=== PATIENT | male | born 1960 | race Caucasian/White ===

== ENCOUNTER → 2020-09-09 13:43 | Outpatient (BNVA) | payer OTHER, SELFPAY | PROVIDERS: PCP Internal Medicine; Visit Provider Internal Medicine Endocrinology, Diabetes & Metabolism | DX: E11.65 Type 2 diabetes mellitus with hyperglycemia (principal); E11.42 Type 2 diabetes mellitus with diabetic polyneuropathy; E11.3299 Type 2 diabetes mellitus with mild nonproliferative diabetic retinopathy without macular edema, unspecified eye; E78.5 Hyperlipidemia, unspecified; E66.01 Morbid (severe) obesity due to excess calories; I10 Essential (primary) hypertension; Z79.4 Long term (current) use of insulin; Z68.42 Body mass index [BMI] 45.0-49.9, adult | CPT/HCPCS: 82947; 99212 ==

== ENCOUNTER 2020-09-14 11:26 | Outpatient (REF) | payer OTHER, SELFPAY ==
[2020-09-14 12:22] LABS: Hematocrit 41.5 % (42-52); Hemoglobin 13.5 g/dl (14.0-18.0); Mean Corpuscular HGB Conc 32.5 g/dl (31.0-36.0); Mean Corpuscular Volume 89.1 fL (80-98); Mean Platelet Volume 10.2 fL (9.4-12.4); Platelet Count 252 X10*3/uL (160-400); Red Blood Count 4.66 X10*6/uL (4.60-5.80); Red Cell Distribution Width 13.2 % (11.0-16.0); White Blood Count 10.1 X10*3/uL (4.8-10.8)
[2020-09-14 12:40] LABS: Alanine Aminotransferase 11 U/L (0-40); Albumin Level 4.3 g/dL (3.5-5.0); Alkaline Phosphatase 76 U/L (39-117); Anion Gap 13 (12-20); Aspartate Amino Transferase 13 U/L (5-37); Bilirubin Total 0.6 mg/dL (0.0-1.0); Blood Urea Nitrogen 14 mg/dL (9-16); Calcium 9.8 mg/dL (8.4-10.2); Carbon Dioxide 25 mmol/L (22-29); Chloride 106 mmol/L (96-108); Cholesterol 195 mg/dL; Estimated Glomerular Filt Rate > 60; Glucose Fasting 139 mg/dL (60-99); HDL Cholesterol 43 mg/dL; LDL Cholesterol Calculated 135 mg/dl; Potassium 4.6 mmol/L (3.3-5.1); Sodium 139 mmol/L (135-145); Total Protein 6.8 g/dL (6.5-8.0); Triglycerides 87 mg/dL
[2020-09-14 13:26] LABS: Vitamin B12 369 pg/mL (200-900)
[2020-09-16 12:12] LABS: LDL Cholesterol Direct 136 mg/dL (<100)
== END 2020-09-14 11:27 | disposition home or self-care (01) ==
LOC: HO.LAB 11:26
PROVIDERS: PCP Internal Medicine; Visit Provider Internal Medicine Endocrinology, Diabetes & Metabolism
DX: E11.65 Type 2 diabetes mellitus with hyperglycemia (principal)
CPT/HCPCS: 36415; 80053; 80061; 82607; 83721; 85027

== ENCOUNTER → 2020-10-01 13:06 | Outpatient (BNVA) | payer OTHER, SELFPAY | PROVIDERS: PCP Internal Medicine; Visit Provider Surgery Vascular Surgery | DX: I83.11 Varicose veins of right lower extremity with inflammation (principal) | CPT/HCPCS: 99212 ==

== ENCOUNTER 2020-10-20 12:31 | Outpatient (REF) | payer OTHER, SELFPAY ==
--- NOTE | ~2020-10-20 | US_ITS ---
EXAMINATION: BILATERAL LOWER EXTREMITY VENOUS ULTRASOUND (Reflux Exam) CLINICAL INDICATION: This is a 60-year-old male with venous insufficiency and varicose veins. COMPARISON: None. TECHNIQUE: Color flow triplex imaging and compression Doppler was performed to evaluate both the deep and the superficial systems bilaterally. To evaluate the superficial system, the examination was performed in the upright position. Color-flow Doppler ultrasound and compression ultrasound were utilized. In addition, maneuvers were utilized to demonstrate reflux. FINDINGS: 1. DEEP VENOUS ULTRASOUND OF THE RIGHT LOWER EXTREMITY: Common Femoral Vein: Compressible, normal respiratory variation and augmented flow. Femoral vein: Compressible, normal color flow and augmentation. Popliteal Vein: Compressible, normal augmentation. Deep Reflux: There is no evidence of reflux in the deep system in either the common femoral vein or the popliteal vein. . There is no evidence of a Giles's cyst. 2. SUPERFICIAL ULTRASOUND WITH DOPPLER OF RIGHT LOWER EXTREMITY GREAT SAPHENOUS VEIN: Saphenofemoral junction: 0.7 cm. There is no reflux at the junction. Mid thigh: 0.4 cm. The reflux time is 3260 ms. Above knee: 0.6 cm. There is no reflux this level. There is chronic appearing clot in the great saphenous vein at this level. Below knee: 0.6 cm. The reflux time is 1280 ms per Mid calf: 0.5 cm. The reflux time is 436 ms per Ankle: 0.5 cm. The reflux time is 244 ms per GSV REFLUX: There is reflux in the great saphenous vein but not at the junction. DUPLICATED GREAT SAPHENOUS VEIN: There is a 0.6 cm duplicated lateral great saphenous vein without reflux at the junction. However, it measures 0.5 cm in the mid thigh with the reflux time of 1204 ms. SMALL SAPHENOUS VEIN: Upper: 0.2 cm Lower: There are 0.2 cm SSV REFLUX: No evidence of reflux. VEIN OF GIACOMINI: None Imaged. PERFORATORS: None Imaged VARICOSITIES: There are 0.6 and 0.5 cm varicose veins in the proximal thigh, at the knee and the mid calf with greater than 1000 ms of reflux. 3. DEEP VENOUS ULTRASOUND OF THE LEFT LOWER EXTREMITY: Common Femoral Vein: Compressible, normal respiratory variation and augmented flow. Femoral vein: Compressible, normal color flow and augmentation. Popliteal Vein: Compressible, normal augmentation. Deep Reflux: There is no evidence of reflux in the deep system in either the common femoral vein or the popliteal vein. There is no evidence of a Giles's cyst. 4. SUPERFICIAL ULTRASOUND WITH DOPPLER OF LEFT LOWER EXTREMITY GREAT SAPHENOUS VEIN: Saphenofemoral junction: 1.1 cm. There is no reflux at the junction appear Mid thigh: 0.4 cm. No flow is seen at this level. There is chronic appearing clot in this portion of the great saphenous vein. Above knee: 0.3 cm. There is no reflux. Below knee: 0.5 cm. There is greater than 3 seconds of reflux at this level. Mid calf: 0.3 cm. The reflux time is 1248 ms. Ankle: 0.3 cm. There is no reflux at this level. GSV REFLUX: There is isolated reflux in the left great saphenous vein. DUPLICATED GREAT SAPHENOUS VEIN: There is a duplicated lateral great saphenous vein measuring 0.6 cm without evidence of reflux. SMALL SAPHENOUS VEIN: Upper: 0.3 cm Lower: 0.2 cm SSV REFLUX: No evidence of reflux. VEIN OF GIACOMINI: None Imaged. PERFORATORS: There is a 0.3 cm oracle bpm developer without reflux to VARICOSITIES: There are 0.5 cm and 0.3 cm varicose veins in the proximal thigh, proximal calf. There is 1760 ms of reflux in the proximal calf. There is 2224 ms of reflux in the proximal calf. There is a left-sided Giles's cyst measuring 4.2 x 1.2 x 3.8 cm. US/US venous duplex LE BI IMPRESSION: 1. There is a patent right great saphenous vein without evidence of reflux at the junction. However, there is reflux below this area. There is chronic-appearing clot in the mid thigh great saphenous vein. 2. 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 3. There is a patent right small saphenous vein without evidence of reflux. 4. There are right leg varicose veins with greater than 500 ms of reflux that measure 0.5 and 0.6 cm. 5. There is a patent left great saphenous vein without evidence of reflux at the junction. There is reflux seen at and below the knee. There is chronic-appearing clot in the mid great saphenous vein. 6. There is a patent left lateral duplicated great saphenous vein without evidence of reflux at the junction. 7. There is a patent left small saphenous vein without evidence of reflux. 8. There are left leg varicose veins with greater than 500 ms of reflux in the measure 0.3 and 0.5 cm, respectively. 8. There is a left-sided Giles's cyst as noted.
== END 2020-10-20 12:32 | disposition home or self-care (01) ==
LOC: HO.US 12:31
PROVIDERS: Visit Provider Surgery Vascular Surgery
DX: I83.11 Varicose veins of right lower extremity with inflammation (principal); I83.893 Varicose veins of bilateral lower extremities with other complications
CPT/HCPCS: 93970

== ENCOUNTER → 2020-10-29 12:50 | Outpatient (BNVA) | payer OTHER, SELFPAY | PROVIDERS: Visit Provider Surgery Vascular Surgery | DX: I83.11 Varicose veins of right lower extremity with inflammation (principal); E11.42 Type 2 diabetes mellitus with diabetic polyneuropathy; E11.65 Type 2 diabetes mellitus with hyperglycemia; E11.3299 Type 2 diabetes mellitus with mild nonproliferative diabetic retinopathy without macular edema, unspecified eye; E66.01 Morbid (severe) obesity due to excess calories; Z68.42 Body mass index [BMI] 45.0-49.9, adult; Z88.8 Allergy status to other drugs, medicaments and biological substances | CPT/HCPCS: 99212 ==

== ENCOUNTER → 2020-11-27 10:20 | Outpatient (BNVA) | payer OTHER, SELFPAY | PROVIDERS: Visit Provider Surgery Vascular Surgery | DX: I83.11 Varicose veins of right lower extremity with inflammation (principal) | CPT/HCPCS: 36475; 36476 ==

== ENCOUNTER 2020-11-30 15:24 | Outpatient (REF) | payer OTHER, SELFPAY ==
--- NOTE | ~2020-11-30 | US_ITS ---
EXAMINATION: US VENOUS ULTRASOUND WITH DOPPLER LOWER EXTREMITY, RIGHT CLINICAL INFORMATION: Status post right great saphenous vein RFA. COMPARISON: None. TECHNIQUE: Ultrasound of the deep veins is performed from the hip to the calf with compression sonography and color and pulse Doppler assessment. Spectral analysis with color-flow imaging is performed. FINDINGS: There is normal venous compression and respiratory variation and augmented flow. The visualized common femoral vein, superficial femoral vein, profunda femoral vein, popliteal vein, and the trifurcation region shows no evidence of deep venous thrombosis. There is a 3.0 x 4.6 x 0.4 cm Giles's cyst. The right great saphenous vein is occluded 3.3 cm from the saphenofemoral junction. If the patient's symptoms persist, followup ultrasound in 5 days 7 days might be of value to exclude proximal propagation from a non-visualized calf vein. US/US venous duplex LE RT IMPRESSION: No DVT demonstrated in the right lower extremity. The right great saphenous vein is occluded 3.3 cm from the saphenofemoral junction. There is a 4.6 cm right popliteal fossa Giles's cyst.
== END 2020-11-30 15:25 | disposition home or self-care (01) ==
LOC: HO.US 15:24
PROVIDERS: Visit Provider Surgery Vascular Surgery
DX: M79.604 Pain in right leg (principal)
CPT/HCPCS: 93971

== ENCOUNTER → 2020-12-10 10:33 | Outpatient (BNVA) | payer OTHER, SELFPAY | PROVIDERS: Visit Provider Surgery Vascular Surgery | DX: I83.11 Varicose veins of right lower extremity with inflammation (principal) | CPT/HCPCS: 99212 ==

== ENCOUNTER → 2021-02-11 12:58 | Outpatient (BNVA) | payer OTHER, SELFPAY | PROVIDERS: PCP Internal Medicine; Visit Provider Surgery Vascular Surgery | DX: I89.0 Lymphedema, not elsewhere classified (principal) | CPT/HCPCS: 99212 ==

== ENCOUNTER → 2022-07-28 11:09 | Outpatient (BNVA) | payer OTHER, SELFPAY | PROVIDERS: PCP Internal Medicine; Visit Provider Surgery Vascular Surgery | DX: I83.11 Varicose veins of right lower extremity with inflammation (principal); I89.0 Lymphedema, not elsewhere classified; I25.10 Atherosclerotic heart disease of native coronary artery without angina pectoris | CPT/HCPCS: 99212 ==

== ENCOUNTER → 2023-10-02 09:20 | Outpatient (BNVA) | payer OTHER, SELFPAY | PROVIDERS: PCP Internal Medicine; Visit Provider Surgery ==

== ENCOUNTER 2023-10-27 08:55 | Outpatient (AMB) | payer MEDICARE, SELFPAY ==
--- NOTE | 2023-10-27 10:00 | MHC.OFFVISWM ---
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 Allergies morphine Allergy (Intermediate, Verified 10/27/23 10:00) Hives empagliflozin [Jardiance] Allergy (Unknown, Verified 10/27/23 10:00) Unknown Medication List - Last Reconciled 10/27/23 by Graham Zepeda MD atorvastatin 40 mg PO DAILY blood sugar diagnostic (FreeStyle Lite Strips) 4 times a day carvedilol 25 mg PO BID cholecalciferol (vitamin D3) 50 mcg PO DAILY clotrimazole 1% appl topical BID dulaglutide (Trulicity) mg subcut furosemide 20 mg PO DAILY insulin aspart (niacinamide) 100 unit/mL (Fiasp U-100 Insulin) 0 - 25 units subcut TID insulin degludec (Tresiba FlexTouch U-200 insulin) 120 units (0.6 mL) subcut DAILY 30 days lisinopril 20 mg PO BID metformin 1,000 mg PO BID 90 days pen needle, diabetic (BD Yudy 2nd Gen Pen Needle) 5 times a day pregabalin 200 mg PO BID sacubitril-valsartan 49-51 mg (Entresto) 1 tab PO BID sacubitril-valsartan 97-103 mg (Entresto) 1 tab PO BID spironolactone 25 mg PO DAILY HPI 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: Details: Start time: 9.55am, End time: 10.40am ?I spent 40 minutes speaking with the patient on the phone plus an additional 5 minutes reviewing and updating records for a total of 45 minutes HPI Comments Details: Previous weight loss efforts: Janeen Gonsales MD-supervised Wakes up: 7am, sleeps: 11pm Breakfast: 10am (toast, eggs) Lunch: 1-2pm (salad, sandwich) Dinner: 6-7pm (chicken, pork with potatoes) Snacks: 4pm (fruit: grapes) Exercise: Ski machine Fluids: Coffee: 24oz/d (sweetener, almond milk), tea: 1/month (sugar free ice tea), soda: none, juice: occasionally, ETOH: none PFSH Medical History (Updated 10/27/23 @ 10:06 by Graham Zepeda MD) Morbid obesity Morbid obesity with BMI of 45.0-49.9, adult Dyslipidemia Mild nonproliferative diabetic retinopathy associated with type 2 diabetes mellitus Diabetic polyneuropathy associated with type 2 diabetes mellitus 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 Brother Prostate cancer Social History (Updated 10/02/23 @ 10:18 by Denisha Mccracken CMA) Alcohol intake: never Patient Tobacco Use Status: Former Tobacco user Tobacco use type: Cigarette Telehealth Telehealth Telehealth Platform: Telephone Location of provider rendering services: practice address Location of patient: address on file Patient Identification confirmed using: Name, : Yes Telehealth method: voice only Patient verbally consented to treatment: Yes Patient verbally consented to billing insurance company: Yes Patient informed of any privacy concerns related to visit: Yes Minutes spent on Phone/Video with Pt.: 45 Assessment & Plan Assessment & Plan (1) Morbid obesity: Code(s): E66.01 - Morbid (severe) obesity due to excess calories Category: Medical Plan: 1.? Plan for lap sleeve gastrectomy. If diaphragmatic or ventral hernias are present at time of surgery, these will be repaired laparoscopically as well. Risks and complications were discussed in detail including possible conversion to an open procedure, anastomotic leak, bleeding requiring transfusion, small bowel obstruction, , DVT and pulmonary embolism, cardiac, or pulmonary complications, as mcfp complications such as anastomotic ulcer, insufficient weight loss and vitamin deficiencies. I emphasized the importance of close follow-up, adherence to instructions and good communication. 2. Nutritional counseling. Start with 2 Pure protein shakes (buy at [employer], [employer] or [employer]) (TWO scoops EACH in 8oz low fat unsweetened almond milk each) at 8am-10am and 11am-1pm, 1 Pure protein bar (buy at [employer], [employer] or [employer]) at 2pm-4pm, HALF Pure protein bar at 5pm-6pm, dinner at 6pm (10 forks of protein and 10 forks of salad/vegetables) AND one more Pure protein bar after dinner at 8pm-10pm. So you do 2 protein shakes, 2.5 protein bars and one meal per day. Meal to include lean meat (beef, fish, pork, turkey, chicken), or [place] yogurt, or egg whites, or beans with a salad with olive oil and fruits (berries, pears, apples, kiwi). Avoid salt, breads, potatoes, rice, pasta, desserts. 3. Each shake would be drunk slowly, like coffee in a period of 2 hours. 4. Cut each bar in 4 pieces and eat each piece in 30min ?to make each bar last 2 hours. 5. I emphasized the importance of measuring accurately the food portion and measure it when serving the food in plate 6. The meal portions include 10 full-size forks of meat and 10 full-size forks of salad. You always eat the meat portion but you can replace up to 5 forks for salad/vegetables with rice, potatoes or pasta, or a fruit ?if you like. The less you do it the better weight loss will be. 7. One full-size fork is what it can be scooped on the fork without falling aside and not what can be bit with the fork. Use regular forks like those you find in a typical restaurant. 8.? Please send me weight measurements as soon as possible and then once a week. Always include your diet and exercise plan. 9. Start the ski machine for 10 minutes, twice per day 10. The best choice would be to purchase a stationary bike, elliptical or treadmill at home that can track calories. Let me know if you do so I can give you an exercise plan. 11.Goal is to lose at least 1.5-2lbs per week 12. Goal to lose 10% of your weight before surgery, which is about 38lbs. Ultimate weight goal: 338lbs before surgery 13. Please follow the diet plan exactly without any change. If you don't like something about the plan or you feel hungry you need to communicate with me so I can help you revise the plan. You should not change the plan yourself. 14. To be scheduled for EGD due to history of GERD. The possibility of biopsies was discussed. Patient needs to avoid use of NSAIDs and aspirin for 1 week prior to EGD. Risks of perforation and bleeding was discussed with the patient. This will be an outpatient procedure with IV sedation. 15. Please buy a blood pressure monitor. I emphasized the importance of monitoring the blood pressure daily in am when wakes up and two more times throughout the day. If systolic blood pressure is 110 mmHg, or less I explained to the patient that needs to notify me. Also I explained the symptoms of orthostatic hypotension (dizziness and lightheadedness) for which the patient also needs to notify me. 16. 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, Z68.42 - Body mass index [BMI] 45.0-49.9, adult, Z79.4 - intermediate project manager (current) use of insulin Hemoglobin A1c Today E11.65 - Type 2 diabetes mellitus with hyperglycemia, E66.01 - Morbid (severe) obesity due to excess calories, E78.5 - Hyperlipidemia, unspecified, I10 - Essential (primary) hypertension, 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, Z68.42 - Body mass index [BMI] 45.0-49.9, adult, Z79.4 - intermediate project manager (current) use of insulin H Pylori Breath Test Today E11.65 - Type 2 diabetes mellitus with hyperglycemia, E66.01 - Morbid (severe) obesity due to excess calories, E78.5 - Hyperlipidemia, unspecified, I10 - Essential (primary) hypertension, 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 Complete Blood Count Auto Diff Today E11.65 - Type 2 diabetes mellitus with hyperglycemia, E66.01 - Morbid (severe) obesity due to excess calories, E78.5 - Hyperlipidemia, unspecified, I10 - Essential (primary) hypertension, 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, Z68.42 - Body mass index [BMI] 45.0-49.9, adult, Z79.4 - intermediate project manager (current) use of insulin Vitamin B12 and Folate Today E11.65 - Type 2 diabetes mellitus with hyperglycemia, E66.01 - Morbid (severe) obesity due to excess calories, E78.5 - Hyperlipidemia, unspecified, I10 - Essential (primary) hypertension, 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 Zinc Today E11.65 - Type 2 diabetes mellitus with hyperglycemia, E66.01 - Morbid (severe) obesity due to excess calories, E78.5 - Hyperlipidemia, unspecified, I10 - Essential (primary) hypertension, 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, Z68.42 - Body mass index [BMI] 45.0-49.9, adult, Z79.4 - intermediate project manager (current) use of insulin C Reactive Protein Today E11.65 - Type 2 diabetes mellitus with hyperglycemia, E66.01 - Morbid (severe) obesity due to excess calories, E78.5 - Hyperlipidemia, unspecified, I10 - Essential (primary) hypertension, 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 Vitamin A Today E11.65 - Type 2 diabetes mellitus with hyperglycemia, E66.01 - Morbid (severe) obesity due to excess calories, E78.5 - Hyperlipidemia, unspecified, I10 - Essential (primary) hypertension, 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, Z68.42 - Body mass index [BMI] 45.0-49.9, adult, Z79.4 - intermediate project manager (current) use of insulin Ferritin Today E11.65 - Type 2 diabetes mellitus with hyperglycemia, E66.01 - Morbid (severe) obesity due to excess calories, E78.5 - Hyperlipidemia, unspecified, I10 - Essential (primary) hypertension, 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, Z68.42 - Body mass index [BMI] 45.0-49.9, adult, Z79.4 - intermediate project manager (current) use of insulin Vitamin D 25-OH Total Today E11.65 - Type 2 diabetes mellitus with hyperglycemia, E66.01 - Morbid (severe) obesity due to excess calories, E78.5 - Hyperlipidemia, unspecified, I10 - Essential (primary) hypertension, 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 XR chest 2V Today E11.65 - Type 2 diabetes mellitus with hyperglycemia, E66.01 - Morbid (severe) obesity due to excess calories, E78.5 - Hyperlipidemia, unspecified, I10 - Essential (primary) hypertension, 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 ECG 12 lead EKG Today E11.65 - Type 2 diabetes mellitus with hyperglycemia, E66.01 - Morbid (severe) obesity due to excess calories, E78.5 - Hyperlipidemia, unspecified, I10 - Essential (primary) hypertension, 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 FL upper GI w air Today E11.65 - Type 2 diabetes mellitus with hyperglycemia, E66.01 - Morbid (severe) obesity due to excess calories, E78.5 - Hyperlipidemia, unspecified, I10 - Essential (primary) hypertension, 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 CA lexiscan stress w alvarez Today 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 Lipid 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, Z68.42 - Body mass index [BMI] 45.0-49.9, adult, Z79.4 - intermediate project manager (current) use of insulin Vitamin B1 Today E11.65 - Type 2 diabetes mellitus with hyperglycemia, E66.01 - Morbid (severe) obesity due to excess calories, E78.5 - Hyperlipidemia, unspecified, I10 - Essential (primary) hypertension, 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, Z68.42 - Body mass index [BMI] 45.0-49.9, adult, Z79.4 - intermediate project manager (current) use of insulin TSH reflex Free T4 Today E11.65 - Type 2 diabetes mellitus with hyperglycemia, E66.01 - Morbid (severe) obesity due to excess calories, E78.5 - Hyperlipidemia, unspecified, I10 - Essential (primary) hypertension, 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 US abdomen comp w elastography Today E11.65 - Type 2 diabetes mellitus with hyperglycemia, E66.01 - Morbid (severe) obesity due to excess calories, E78.5 - Hyperlipidemia, unspecified, I10 - Essential (primary) hypertension, 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, Z68.42 - Body mass index [BMI] 45.0-49.9, adult, Z79.4 - intermediate project manager (current) use of insulin Referrals Cardiology Referral 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 Behavioral Health Referral E11.65 - Type 2 diabetes mellitus with hyperglycemia, E66.01 - Morbid (severe) obesity due to excess calories, E78.5 - Hyperlipidemia, unspecified, I10 - Essential (primary) hypertension, 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
[2023-10-27 10:14] VITALS: BMI 54.8
== END 2023-10-27 10:41 | disposition home or self-care (01) ==
LOC: HO.HBS 08:55
PROVIDERS: PCP Internal Medicine; Visit Provider Surgery
DX: E66.01 Morbid (severe) obesity due to excess calories (principal); Z68.43 Body mass index [BMI] 50.0-59.9, adult
CPT/HCPCS: 99443

== ENCOUNTER → 2023-10-27 08:55 | Outpatient (BNVA) | payer MEDICARE, SELFPAY | PROVIDERS: PCP Internal Medicine; Visit Provider Surgery ==

== ENCOUNTER → 2023-11-10 10:23 | Outpatient (BNVA) | payer MEDICARE, SELFPAY | PROVIDERS: PCP Internal Medicine; Visit Provider Physician Assistant Surgical ==

== ENCOUNTER 2023-11-13 09:20 | Outpatient (REF) | payer MEDICARE, MEDICAID, SELFPAY ==
--- NOTE | ~2023-11-13 | US_ITS ---
EXAMINATION: US COMPLETE ABDOMEN WITH LIVER ELASTOGRAPHY CLINICAL INFORMATION: Obesity. COMPARISON: None available. TECHNIQUE: Real-time imaging of the abdominal viscera. Noninvasive ultrasound liver fibrosis assessment is performed using Homero ElastPQ point quantification shear wave elastography (pSWE) with a C5-2 MHz transducer. Multiple elastography samples are obtained. There is some limitation as Elastoplasty measurements could not be obtained at more than 2 cm deep to the liver capsule. FINDINGS: PANCREAS: Pancreas was obscured by bowel gas and could not be fully evaluated. ABDOMINAL AORTA: The proximal aorta was of normal caliber but the mid and distal aorta were obscured by bowel gas and could not be evaluated. INFERIOR VENA CAVA: Visualized portions are normal. LIVER: The liver is enlarged with increased echogenicity consistent with hepatic steatosis. No focal lesion or intrahepatic biliary duct dilatation. The right lobe measures 21.7 cm in length. The left lobe measures 13 cm in length. Portal flow is towards the liver (hepatopetal). Shear wave liver elastography median stiffness is 1.41 m/s (reference: normal median stiffness is 1.3 m/s or less). IQR/median stiffness to assess sampling precision is 0.28 (reference: good quality data set is IQR/median stiffness of 0.15 or less). GALLBLADDER: Gallstones are present without evidence of cholecystitis. COMMON BILE DUCT: Normal in caliber measuring 0.4 cm in diameter. RIGHT KIDNEY: Normal. No hydronephrosis. No renal calculi or focal parenchymal lesions. The kidney measures 12.2 cm in maximum dimension. LEFT KIDNEY: Normal. No hydronephrosis. No renal calculi or focal parenchymal lesions. The kidney measures 12.0 cm in maximum dimension. SPLEEN: Normal. The spleen measures 11.1 cm in maximum dimension. FREE FLUID: None. US/US abdomen comp w elastography IMPRESSION: 1. Enlarged fatty liver. 2. Liver elastography: In the absence of other known clinical signs, measurements rule out compensated advanced chronic liver disease. If there are known clinical signs, further testing may be needed for confirmation. REFERENCE: Society of Radiologists in Ultrasound Liver Stiffness Thresholds (2019): LIVER STIFFNESS THRESHOLDS: *Liver Stiffness equal or less than 1.3 m/s: High probability of being normal. *Liver Stiffness less than 1.7 m/s: In the absence of other known clinical signs, rules out compensated advanced chronic liver disease. *Liver Stiffness 1.7-2.1 m/s: Suggestive of compensated advanced chronic liver disease but need further test for confirmation. *Liver Stiffness over 2.1 m/s: Rules in compensated advanced chronic liver disease. *Liver Stiffness over 2.4 m/s: Suggestive of clinically significant portal hypertension. QUALITY OF DATA SET: *IQR/Median value equal or less than 0.15 implies a quality data set. *IQR/Median value over 0.15 implies a poor quality data set. SIGNIFICANT CHANGE FROM PRIOR EXAM: Significant change if liver stiffness measurement is 10% or greater from prior exam. OTHER CONSIDERATIONS: The stage of liver fibrosis may be overestimated in the setting of acute hepatitis, liver inflammation, elevated liver function tests, hepatic vascular congestion, obstructive cholestasis, non-fasting state, and infiltrative diseases such as amyloidosis and lymphoma. In some patients with NAFLD, the liver stiffness thresholds for compensated advanced chronic liver disease may be lower. In causes other than viral hepatitis and NAFLD, liver stiffness thresholds are not well established. Electronically signed by: Alexi Jamil MD 11/18/2023 12:35 PM EDT
--- NOTE | 2023-11-13 09:58 | ECG_ITS ---
Test Reason : Hyperglycemia Blood Pressure : / mmHG Vent. Rate : 080 BPM Atrial Rate : 080 BPM P-R Int : 202 ms QRS Dur : 110 ms QT Int : 386 ms P-R-T Axes : 066 -47 -10 degrees QTc Int : 445 ms Sinus rhythm with occasional Premature ventricular complexes Left anterior fascicular block Abnormal ECG No previous ECGs available Referred By: Graham Zepeda Electronically Signed By:CECILY COLLINS
[2023-11-13 10:18] LABS: MANUAL DIFF FLAG NO
[2023-11-13 10:53] LABS: Basophils Absolute Auto 0.1 X10*3/uL (0.0-0.2); Basophils Percent Auto 0.7 % (0-2); Eosinophils Absolute Auto 0.2 X10*3/uL (0.0-0.4); Hematocrit 38.5 % (42.0-52.0); Hemoglobin 12.4 g/dl (14.0-18.0); Imm Gran Abs Auto 0.04 X10*3/uL (0.00-0.03); Imm Gran Pct Auto 0.4 % (0.0-0.4); Lymphocytes Percent Auto 26.6 % (20-40); Mean Corpuscular HGB Conc 32.2 g/dl (31.0-36.0); Mean Corpuscular Hemoglobin 28.7 pg (27.0-33.0); Mean Corpuscular Volume 89.1 fL (80.0-98.0); Mean Platelet Volume 10.4 fL (9.4-12.4); Monocytes Absolute Auto 0.9 X10*3/uL (0.1-1.2); Monocytes Percent Auto 7.9 % (2-11); Neutrophils Absolute Auto 6.9 x10*3/uL (2.0-8.3); Neutrophils Percent Auto 62.4 % (45-73); Platelet Count 322 X10*3/uL (160-400); Red Blood Count 4.32 X10*6/uL (4.60-5.80); Red Cell Distribution Width 13.5 % (11.0-16.0); White Blood Count 11.1 X10*3/uL (4.8-10.8)
[2023-11-13 11:51] LABS: Estimated Average Glucose 163 mg/dL; Hemoglobin A1c % 7.3 % (<6.0)
[2023-11-13 12:06] LABS: Folate 8.3 ng/mL (> or = 4.0); Vitamin B12 329 pg/mL (200-900)
[2023-11-13 12:11] LABS: Anion Gap 13 (12-20); Blood Urea Nitrogen 26 mg/dL (9-16); Calcium 9.5 mg/dL (8.4-10.2); Carbon Dioxide 25 mmol/L (22-29); Chloride 108 mmol/L (96-108); Estimated Glomerular Filt Rate > 60; Potassium 4.5 mmol/L (3.3-5.1); Sodium 141 mmol/L (135-145)
[2023-11-13 12:12] LABS: Alanine Aminotransferase 9 U/L (0-40); Albumin Level 4.1 g/dL (3.5-5.0); Alkaline Phosphatase 106 U/L (39-117); Aspartate Amino Transferase 11 U/L (5-37); Bilirubin Total 0.3 mg/dL (0.0-1.0); C Reactive Protein 1.09 mg/dL (< or = 0.50); Cholesterol 94 mg/dL (<200); Ferritin 63 ng/mL (20-250); HDL Cholesterol 28 mg/dL (>40); Iron 60 mcg/dL (45-160); LDL Cholesterol Calculated 51 mg/dL (<100); Percent Iron Saturation 21 % (15-50); TSH reflex Free T4 1.03 uIU/mL (0.32-4.0); Total Iron Binding Capacity 282 mcg/dL (228-428); Total Protein 6.8 g/dL (6.5-8.0); Triglycerides 76 mg/dL (<150); Unsaturated Iron Binding 222 ug/dL; Vitamin D 25-OH Total 31.2 ng/mL (>30)
[2023-11-13 14:08] LABS: Glucose Random 58 mg/dL (60-115); Insulin 505 uU/mL (2-29)
[2023-11-16 04:58] LABS: Zinc 72 mcg/dL (60-130)
[2023-11-16 17:54] LABS: Vitamin A 50 mcg/dL (38-98)
[2023-11-17 12:43] LABS: Vitamin B1 7 nmol/L (8-30)
== END 2023-11-13 09:21 | disposition home or self-care (01) ==
LOC: HO.US 09:20
PROVIDERS: PCP Internal Medicine; Visit Provider Surgery
DX: E11.65 Type 2 diabetes mellitus with hyperglycemia (principal); I10 Essential (primary) hypertension; Z79.4 Long term (current) use of insulin; E78.5 Hyperlipidemia, unspecified; E66.01 Morbid (severe) obesity due to excess calories; Z68.42 Body mass index [BMI] 45.0-49.9, adult; I25.10 Atherosclerotic heart disease of native coronary artery without angina pectoris
CPT/HCPCS: 36415; 76700; 76981; 80053; 80061; 82306; 82607; 82728; 82746; 83036; 83525; 83540; 84425; 84443; 84590; 84630; 85025; 86140; 93005

== ENCOUNTER → 2023-11-15 08:09 | Outpatient (BNVA) | payer MEDICARE, SELFPAY | PROVIDERS: PCP Internal Medicine; Visit Provider Counselor Mental Health ==

== ENCOUNTER → 2023-11-15 08:09 | Outpatient (AMB) | payer MEDICARE, MEDICAID, SELFPAY ==
--- NOTE | 2023-11-15 08:10 | MHC.WMTHER ---
Intake Intake Visit Reasons: TV BH Intake Allergies morphine Allergy (Intermediate, Verified 11/10/23 10:53) Hives empagliflozin [Jardiance] Allergy (Unknown, Verified 11/10/23 10:53) Unknown [facility] Medical History (Updated 10/27/23 @ 10:06 by Graham Zepeda MD) Morbid obesity Morbid obesity with BMI of 45.0-49.9, adult Dyslipidemia Mild nonproliferative diabetic retinopathy associated with type 2 diabetes mellitus Diabetic polyneuropathy associated with type 2 diabetes mellitus senior living (current) use of insulin Essential hypertension Diabetes type 2, uncontrolled Surgical History (Updated 07/28/22 @ 11:20 by BO Randall) H/O heart artery stent (~02/2022) Hx of tonsillectomy Hx of knee surgery History of laparoscopic appendectomy Family History (Updated 10/02/23 @ 10:18 by Denisha Mccracken CMA) Father Diabetes mellitus Heart disease Mother No problems noted. Brother Prostate cancer Social History (Updated 10/02/23 @ 10:18 by Denisha Mccracken CMA) Alcohol intake: never Patient Tobacco Use Status: Former Tobacco user Tobacco use type: Cigarette Behavioral Health Assessment Weight Management Therapy Therapy Notes Details PT is a 63 years old male, who presents for a visit to complete BH assessment as part of surgical weight loss program. Presenting Concerns Referral Source [facility]- Provider. Started on 10/[address] Ayala. PT was initially referred by his PCP per his own request. Reason for referral Completion of behavioral health assessment as part of process for weight-loss surgery. Precipitating Event Obesity worsening arthritis. In the last 2 years, he gained over 100Lbs and mobility and pain have increased. Living Situation Current Living Situation Own At risk of losing current housing? No Satisfied with current living situation? Yes Comments PT lives alone with his Cat. Food/Weight/Diet Expectations of change Initial goal to lose 10% of your weight before surgery, which is about 38lbs. Ultimate weight goal: 338lbs before surgery. Patient goals are PT is implementing the following: Current meal plan: Exercise plan: History/Relationship with food Example of meals before starting the program: Breakfast: Lunch: Dinner: Snacks: Drinks/Liquids: History/Relationship with weight In the last 10 years, the patient's Lowest weight was and highest Social History Family history and relationship Single, never . No children. He has 1 brother in [place] and [id number] ( brother's , passed 12/2022) Parents . 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 Currently WNL. Social support Brother. However, he lives away. He has some friends but last time saw them was during brother's Community support None. Church/Spirituality Grew up Roman Catholic. Cultural/Ethnic information . Legal Involvement and History Current or historical involvement with the legal system? None reported Education Highest grade completed 2 years of college. Preferred learning style Learn by doing Currently enrolled in educational program? No Interested in further educational program? No Educational Interests/Skills Play music, good cooker. 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 Financial Situation Describe current financial situation Occasional struggle Financial assistance? Food [place] and SSDI (Due to medical issues (edema, arthritis, neuropathy)) Service Service? No Mental Health and Addiction Treatment Current/Past substance abuse? No Comments Alcohol: None. Cigarettes/Tobacco: none. Quit 5 years ago. Cannabis/Edibles: None. Current/Past addictive behavior concerns? No Psychiatric history Never in counseling before. PT denies ever been in crisis or inpatient for mental health. There is no history and/or current concern about SI/SA and self-harm or other harm. Medical and Physical Health Summary Additional Medical History not covered in history Severe arthritis in legs and knees. Getting worse 2 years ago. Sexual History concerns None reported. Physical exam in the last year? Yes Pain Screening Current pain? Yes Pain in the last few months? Yes Comments PT reports he lives with pain every day. Pain is related to arthritis, gets worse when he stands or walks a lot. Medications Is the patient compliant with medications? Yes Does the patient have Heredia Guardian in place? Not applicable Does the patient use complimentary health approaches? No Trauma/Abuse History History of trauma? No Questionnaires PHQ-9 Over the last 2 weeks, how often have you been bothered by any of the following problems? 1. Little interest or pleasure in doing things: not at all 2. Feeling down, depressed, or hopeless: not at all 3. Trouble falling or staying asleep, or sleeping too much: several days 4. Feeling tired or having little energy: more than half the days (Related to obesity and medical issues. ) 5. Poor appetite or overeating: not at all 6. Feeling bad about yourself - or that you are a failure or have let yourself or your family down: not at all 7. Trouble concentrating on things, such as reading the newspaper or watching television: not at all 8. Moving or speaking so slowly that other people could have noticed. Or the opposite - being so fidgety or restless that you have been moving around a lot more than usual: not at all 9. Thoughts that you would be better off or of hurting yourself in some way: not at all Total score: 3 Depression Screening Interpretation: Negative Depression Screening Done: Yes 53812 - PHQ-9 Billing: Yes Source: Developed by Drs. Andrew Bailey, Nancy Costa, David Johnson and colleagues, with an educational reji from [employer]. Assessment & Plan Assessment & Plan (1) Morbid obesity with BMI of 45.0-49.9, adult: Code(s): E66.01 - Morbid (severe) obesity due to excess calories; Z68.42 - Body mass index [BMI] 45.0-49.9, adult (2) Eating disorder, unspecified: Code(s): F50.9 - Eating disorder, unspecified Qualifiers: Eating disorder type: unspecified eating disorder Qualified Code(s): F50.9 - Eating disorder, unspecified Plan PT not cleared today as we need to complete assessment. Will follow up in 2 weeks. BES will be reviewed Next ovidio: 11/29/2023 at 8am. Telehealth Telehealth Telehealth Platform: [facility] Location of provider rendering services: other Location of patient: address on file Patient Identification confirmed using: Name, : Yes Telehealth method: voice only Patient verbally consented to treatment: Yes Patient verbally consented to billing insurance company: Yes Patient informed of any privacy concerns related to visit: No Minutes spent on Phone/Video with Pt.: 59 (Start time: 8:00am - End time: 8:59am ) Coding Level of Care Code New Pt Tele Psy Diag D[place] ([id number]) Patient Type New Diagnoses Morbid obesity with BMI of 45.0-49.9, adult E66.01; Z68.42 Eating disorder, unspecified type F50.9 Eating disorder type: unspecified eating disorder Time Spent (min) 59 Comment Start time: 8:00am - End time: 8:59am
== END ==
PROVIDERS: PCP Internal Medicine; Visit Provider Counselor Mental Health
DX: F50.9 Eating disorder, unspecified (principal); E66.01 Morbid (severe) obesity due to excess calories; Z68.42 Body mass index [BMI] 45.0-49.9, adult
CPT/HCPCS: 90791

== ENCOUNTER → 2023-11-21 08:53 | Outpatient (BNVA) | payer MEDICARE, SELFPAY | PROVIDERS: PCP Internal Medicine; Visit Provider Physician Assistant Surgical ==

== ENCOUNTER → 2023-11-28 09:27 | Outpatient (BNVA) | payer MEDICARE, SELFPAY | PROVIDERS: PCP Internal Medicine; Visit Provider Physician Assistant Surgical ==

== ENCOUNTER → 2023-11-29 08:14 | Outpatient (AMB) | payer MEDICARE, MEDICAID, SELFPAY ==
--- NOTE | 2023-11-29 08:09 | A.OFFWM_ITS ---
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 Brother Prostate cancer Social History (Updated 10/02/23 @ 10:18 by Denisha Mccracken CMA) Alcohol intake: never Patient Tobacco Use Status: Former Tobacco user Tobacco use type: Cigarette Behavioral Health Assessment Weight Management Therapy Therapy Notes Details PT is a 63 years old male, who presents for a second visit to complete assessment as part of surgical weight loss program. PT is looking forward weight-loss surgery to improve his health and have a po sitive change in life quality. PT reports he has lost almost 20Lbs, he is doing meal plan and despite he would like more solid food he has been following meal plan as prescribed by provider. His insulin dosage decreased and blood pressure readings are better which makes him feels happier and motivated to continue the program. PT denied any history of mental health treatment and or past hospita lization/crisis for behavioral health. Also, denies any history or recent safety concerns around SI/SA and/or self-harm/other-harm, also there is no history of substance use reported. There is also no evidence for stress/emotional-eating, and scores from BES suggest a lower risk for binge eating behavior. PHQ- scores also showed no active symptoms/concerns with depression. On the other hand, mental status exam is within normal limits, suggesting person's functioning is not impaired. At this time patient is cleared from the behavioral health standpoint. Presenting Concerns Referral Source WMP- Provider. Started on 10/[address] Sutherland PT was initially referred by his PCP per his own request. Reason for referral Completion of behavioral health assessment as part of process for weight-loss surgery. Precipitating Event Obesity worsening arthritis. In the last 2 years, he gained over 100Lbs and mobility and pain have increased. Living Situation Current Living Situation Own At risk of losing current housing? No Satisfied with current living situation? Yes Comments PT lives alone with his Cat. Food/Weight/Diet Expectations of change Initial goal to lose 10% of your weight before surgery, which is about 38lbs. Ultimate weight goal: 338lbs before surgery. Patient goals are to be healthier, being able to lose weight and feel better physically and emotionally. PT is implementing the following: Current meal plan: 2 shakes, 2 bars and 1 meal for dinner. Exercise plan: has a leg routine he learned when he went to rehab he does 5 times at week, and ski machine 3 times at week. 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 At times he was overeating and due to his work hours he was not having steady scheduled meals leading him to east as you can , not focusing on food quality was mostly picking all day. He used to drink wine and beer while younger, most recently, before starting the program he was mostly drinking water, ice coffee and juice or cider. At times would also drink seltzer water. Over the last 5 years he was having bigger portions in general. Example of meals before starting the program: Breakfast: [place] muffing, eggs, sweet pastry. Lunch: Skip Dinner: big dinner, carbs/starch/protein. Was snacking in between meals but not everyday. History/Relationship with weight He was very active until about age 41. 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 In the last 10 years, the patient's Lowest weight was around 250Lbs and highest 375Lbs. History/Relationship with dieting Ketto diet, meal plans, Atkins diet (lost weight the first month but then started to cheat and have carbs so he stop losing weight). He was doing diets for several weeks, but then after a while he started modifying diets or cheating and then was not diet anymore. Binge Eating Do you frequently eat large amounts of food in short periods of time, not feeling physically hungry? Yes Do you feel out of control when you eat a large amount of food in a short period of time? No Do you eat large amounts of food rapidly and typically alone? No Night Eating Do you wake up at least once during the night to eat? No If you wake up in the night, do you find that it is necessary to eat something in order to fall back asleep? No Do you have little or no appetite in the morning and feel very hungry in the evening, often overeating between dinner and when you go to bed? No Social History Family history and relationship Single, never . No children. He has 1 brother in [place] and [id number] ( brother's , passed 12/2022) Parents . 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 Currently WNL. Social support Brother. However, he lives away. He has some friends but last time saw them was during brother's Community support None. Hindu/Spirituality Grew up Mosque. Cultural/Ethnic information . Legal Involvement and History Current or historical involvement with the legal system? None reported Education Highest grade completed 2 years of college. Preferred learning style Learn by doing Currently enrolled in educational program? No Interested in further educational program? No Educational Interests/Skills Play music, good cooker. 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 Financial Situation Describe current financial situation Occasional struggle Financial assistance? Food [place] and SSDI (Due to medical issues (edema, arthritis, neuropathy)) Service Service? No Mental Health and Addiction Treatment Current/Past substance abuse? No Comments Alcohol: None. Cigarettes/Tobacco: none. Quit 5 years ago. Cannabis/Edibles: None. Current/Past addictive behavior concerns? No Psychiatric history Never in counseling before. PT denies ever been in crisis or inpatient for mental health. There is no history and/or current concern about SI/SA and self-harm or other harm. Medical and Physical Health Summary Additional Medical History not covered in history Severe arthritis in legs and knees. Getting worse 2 years ago. Sexual History concerns None reported. Physical exam in the last year? Yes Pain Screening Current pain? Yes Pain in the last few months? Yes Comments PT reports he lives with pain every day. Pain is related to arthritis, gets worse when he stands or walks a lot. Medications Is the patient compliant with medications? Yes Does the patient have Heredia Guardian in place? Not applicable Does the patient use complimentary health approaches? No Trauma/Abuse History History of trauma? No Questionnaires Binge Eating Scale Group 1 A. I don't feel self-conscious about my wt. or body size when I'm with others. B. I feel concerned about how I look to others, but it normally does not make me fell disappointed with myself C. I do get self-conscious about my appearance and wt. which makes me feel disappointed in myself. D. I feel very self-conscious about my wt. and frequently I feel intense shame and disgust for myself. I try to avoid social contacts because of my self-cons ciousness. Response Group 1: C Group 2 A. I don't have any difficulty eating slowly in the proper manner. B. Although I seem to gobble down foods, I don't end up feeling stuffed because of eating to much. C. At times, I tend to eat quickly and then, I feel uncomfortably full afterwards. D. I have the habit of bolting down my food, without really chewing it. When this happens I usually feel uncomfortably stuffed because I've eaten to much. Response Group 2: C Group 3 A. I feel capable to control my eating urges when I want to. B. I feel like I have failed to control my eating more than the average person. C. I feel utterly helpless when it comes to feeling in control of my eating urges. D. Because I feel so helpless about controlling my eating I have become very desperate about trying to get control. Response Group 3: B Group 4 A. I don't have the habit of eating when I'm bored. B. I sometimes eat when I'm bored, but often I'm able to get busy and get my mind off food. C. I have a regular habit of eating when I'm bored, but occasionally, I can use some other activity to get my mind off eating. D. I have a strong habit of eating when I'm bored. Nothing seems to help me breath the habit. Response Group 4: C Group 5 A. I'm usually physically hungry when I eat something. B. Occasionally, I eat something on impulse even though I really am not hungry. C. I have the regular habit of eating foods, that I might not really enjoy, to satisfy a hungry feeling even though physically, I don't need the food. D. Although I'm not physically hungry, I get a hungry feeling in my mouth that only seems to be satisfied when I eat a food, like sandwich, that fills my mouth. Sometimes, when I eat the food to satisfy my mouth hunger, I then spit the food out so I won't gain weight. Response Group 5: B Group 6 A. I don't feel any guilt or self-hate after I overeat. B. After I overeat, occasionally I feel guilt or self-hate. C. Almost all the time I experience strong guilt or self-hate after I overeat. Response Group 6: C Group 7 A. I don't lose total control of my eating when dieting even after periods when I overeat. B. Sometimes when I eat a forbidden food on a diet, I feel like I blew it and eat even more. C. Frequently, I have the habit of saying to myself, I've blown it now, why not go all the way, when I overeat on a diet. When that happens I eat more. D. I have a regular habit of starting a strict diets for myself but I break the diets by going on an eating binge. My life seems to be either a feast or famine. Response Group 7: B Group 8 A. I rarely eat so much food that I feel uncomfortably stuffed afterwards. B. Usually about once a month, I each such a quantity of food, I end up feeling very stuffed. C. I have regular periods during the month when I eat large amounts of food, either at mealtime or at snacks. D. I eat so much food that I regularly feel quite uncomfortable after eating and sometimes a bit nauseous. Response Group 8: B Group 9 A. My level of calorie intake does not go up very high or go down very low on a regular basis. B. Sometimes after I overeat, I will try to reduce my caloric intake to almost nothing to compensate for the excess calories I've eaten. C. I have a regular habit of overeating during the night. It seems that my routine is not to be hungry in the morning but overeat in the evening. D. In my adult years, I have had week-long periods where I practically starve myself. This follows periods when I overeat. It seems I live a life of either feast or famine. Response Group 9: A Group 10 A. I usually am able to stop eating when I want to. I know when enough is enough. B. Every so often, I experience a compulsion to eat which I can't seem to control. C. Frequently, I experience strong urges to eat which I seem unable to control, but at other times I can control my eating urges. D. I feel incapable of controlling urges to eat. I have a fear of not being able to stop eating voluntarily. Response Group 10: B Group 11 A. I don't have any problem stopping eating when I feel full. B. I usually can stop eating when I feel full but occasionally overeat leaving me feeling uncomfortably stuffed. C. I have a problem stopping eating once I start and usually I feel uncomfortably stuffed after I eat a meal. D. Because I have a problem not being able to stop eating when I want, I sometimes have to induce vomiting to relieve my stuffed feeling. Response Group 11: B Group 12 A. I seem to eat just as much when I'm with others, Family social gatherings as when I'm by myself. B. Sometimes, when I'm with other persons, I don't eat as much as I want to eat because I'm self-conscious about my eating. C. Frequently, I eat only a small amount of food when others are present, because I'm very embarrassed about my eating. D. I feel so ashamed about overeating that I pick times to overeat when I know no one will see me. I feel like a closet eater. Response Group 12: A Group 13 A. I eat three meals a day with only an occasional between meal snack. B. I eat 3 meals a day, but I also normally snack between meals. C. When I am snacking heavily, I get in the habit of skipping regular meals. D. There are regular periods when I seem to be continually eating, with no planned meals. Response Group 13: B Group 14 A. I don't think much about trying to control unwanted eating urges. B. At least some of the time, I feel my thoughts are pre-occupied with trying to control my eating urges. C. I feel that frequently I spend much time thinking about how much I ate or about trying not to eat anymore. D. It seems to me that most of my waking hours are pre-occupied by thoughts about eating or not eating. I feel like I'm constantly struggling not to eat. Response Group 14: B Group 15 A. I don't think about food a great deal. B. I have strong craving for food but they last only for brief periods of time. C. I have days when I can't seem to think about anything else but food. D. Most of my days seem to be pre-occupied with thoughts about food. I feel like I live to eat. Response Group 15: B Group 16 A. I usually know whether or not I'm physically hungry. I take the right portion of food to satisfy me. B. Occasionally, I feel uncertain about knowing whether or not I'm physically hungry. A these times it's hard to know how much food I should take to satisfy me. C. Even though I might know how many calories I should eat, I don't have any idea what is a normal amount of food for me. Response Group 16: B Binge Eating Score: 18 Score less than 17 Minimal Risk Score between 18-26 Moderate Risk Score between 27-46 High Risk Assessment & Plan Assessment & Plan (1) Adjustment disorder: Code(s): F43.20 - Adjustment disorder, unspecified Qualifiers: Adjustment disorder type: unspecified type Qualified Code(s): F43.20 - Adjustment disorder, unspecified Plan: PT has been cleared from BH standpoint. He will be seen post-op for support. Next ovidio: 4 weeks post-op Telehealth Telehealth Telehealth Platform: [facility] Location of provider rendering services: other Location of patient: address on file Patient Identification confirmed using: Name, : Yes Telehealth method: voice only Patient verbally consented to treatment: Yes Patient verbally consented to billing insurance company: Yes Patient informed of any privacy concerns related to visit: No Minutes spent on Phone/Video with Pt.: 59 (Start time: 8:00am - End time: 8:59am ) Coding Level of Care Code Established Pt Tele Psytx >53 mins (07006) Patient Type Established Diagnoses Adjustment disorder, unspecified type F43.20 Adjustment disorder type: unspecified type Time Spent (min) 59 Comment Start time: 8:00am - End time: 8:59am
== END ==
PROVIDERS: PCP Internal Medicine; Visit Provider Counselor Mental Health
DX: F43.20 Adjustment disorder, unspecified (principal)
CPT/HCPCS: 90837

== ENCOUNTER → 2023-11-29 08:14 | Outpatient (BNVA) | payer MEDICARE, SELFPAY | PROVIDERS: PCP Internal Medicine; Visit Provider Counselor Mental Health ==

== ENCOUNTER 2023-12-01 12:20 | Outpatient (AMB) | payer MEDICARE, MEDICAID, SELFPAY ==
--- NOTE | 2023-12-01 12:21 | A.OFFVIS_ITS ---
VS Expanded 12/01/23 12:28 BP 122/62 Blood Pressure Location Rt brachial Blood Pressure Position Sitting Pulse 79 Pulse Source Pulse Oximeter Temp 95.9 F L Temperature Source Tympanic Pulse Oximetry 97 Oxygen Delivery Method Room Air Height 5 ft 9.5 in Weight 357 lb 12.8 oz BMI 52.1 Body Fat % 45.7 Body Fat Mass 163.4 Fat Free Mass 194.2 Visceral Fat Rating 36.0 Body Water % 41.9 Body Water Mass 150.0 Muscle Mass/Score 184.8 Basal Metabolic Rate/Score 2,797 Intake Visit Reasons: (ov) SWL f/u (transfer per DR Ayala) Allergies morphine Allergy (Intermediate, Verified 12/01/23 12:34) Hives empagliflozin [Jardiance] Allergy (Unknown, Verified 12/01/23 12:34) Unknown HPI Comments Details: Patient is a pleasant 63-year-old male who returns to the office today in follow-up. He was initially seen on 10/27/2023. At that time, his weight was 376.8 lb with a BMI of 54.8. Weight today is 357.8 with a BMI of 52.1. This corresponds to a 19 lb weight loss or 5.04% total body weight loss. He reports blood sugars in the 70s to 90s. He is supposed to be taking 100 units of long- acting insulin, but did not take this morning as he was concerned about hypoglycemia. He states that he will take it when he goes home and has lunch. He continues his meal plan: This is what he states he is doing first shake 7-8 am second shake and fit crunch bar 12-1 second bar 4 pm sometimes 3 of 7 days meal 6 pm 10 forks protein and 10 forks veg fit crunch abr if her does not have it before dinner 9-915 Drinking 80 oz water, Recommended meal plan 2 Pure protein shakes (TWO scoops EACH in 8oz low fat unsweetened almond milk each) at 8am-10am and 11am-1pm, 1 fit crunch protein bar (buy at [employer] or [employer]) at 2pm-4pm, HALF Pure protein bar at 5pm-6pm, dinner at 6pm (10 forks of protein and 10 forks of salad/vegetables) AND one more Pure protein bar after dinner at 8pm-10pm. Exercise plan: [place] track ski machine 3 x per week 10 minutes not tracking calories stretching leg exercise, deep knee bends 4 days per week [facility] Medical History (Updated 10/27/23 @ 10:06 by Graham Zepeda MD) Morbid obesity Morbid obesity with BMI of 45.0-49.9, adult Dyslipidemia Mild nonproliferative diabetic retinopathy associated with type 2 diabetes mellitus Diabetic polyneuropathy associated with type 2 diabetes mellitus residential (current) use of insulin Essential hypertension Diabetes type 2, uncontrolled Surgical History H/O heart artery stent (~02/2022) Hx of tonsillectomy Hx of knee surgery History of laparoscopic appendectomy Family History Father Diabetes mellitus Heart disease Mother No problems noted. Brother Prostate cancer Social History (Updated 10/02/23 @ 10:18 by Denisha Mccracken CMA) Alcohol intake: never Patient Tobacco Use Status: Former Tobacco user Tobacco use type: Cigarette Physical Exam Const General: healthy appearing and no acute distress Resp Effort & Inspection: normal respiratory effort Auscultation: clear to auscultation bilaterally Cardio Rate: regular rate Rhythm: regular rhythm GI Auscultation: normal bowel sounds Extrem General: Yes normal to inspection Assessment & Plan Assessment & Plan (1) Morbid obesity: Code(s): E66.01 - Morbid (severe) obesity due to excess calories Category: Medical Plan: Overall, patient is doing fair. He was somewhat accurate in his representation of the meal plan although his time was off as well as combining the protein shake in the protein bar, we discussed the importance of following the plan exactly including the duration of the shakes and the times of the bars in the shakes. He is measuring his food portions appropriately. He is minimally exercising but states that he is trying and we will continue to improve as he is able. He will continue to communicate with the office weekly, we will have him return to the office for an appointment in approximately 3-4 weeks
[2023-12-01 12:28] VITALS: BP 122/62; PULSE 79; TEMP 35.5; O2SAT 97; BMI 52.1
== END 2023-12-01 12:53 | disposition home or self-care (01) ==
PROVIDERS: PCP Internal Medicine; Visit Provider Physician Assistant Surgical
DX: E66.01 Morbid (severe) obesity due to excess calories (principal); Z68.43 Body mass index [BMI] 50.0-59.9, adult
CPT/HCPCS: 99213

== ENCOUNTER → 2023-12-01 12:20 | Outpatient (BNVA) | payer MEDICARE, SELFPAY | PROVIDERS: PCP Internal Medicine; Visit Provider Physician Assistant Surgical | DX: E66.01 Morbid (severe) obesity due to excess calories (principal); Z68.43 Body mass index [BMI] 50.0-59.9, adult | CPT/HCPCS: 99212 ==

== ENCOUNTER → 2023-12-08 09:59 | Outpatient (BNVA) | payer MEDICARE, SELFPAY | PROVIDERS: PCP Internal Medicine; Visit Provider Physician Assistant Surgical ==

== ENCOUNTER → 2023-12-11 07:47 | Outpatient (REF) | payer MEDICARE, MEDICAID, SELFPAY ==
--- NOTE | ~2023-12-11 | NM_ITS ---
Lexiscan Myocardial perfusion study Indication: CAD to evaluate for myocardial ischemia Technique: The patient was brought in for a Lexiscan perfusion study on 12/11/2023 and was injected 0.4 mg of Lexiscan intravenously. Within a minute of this injection 45 mCi of sestamibi was given intravenously. Images were obtained using the SPECT gamma camera interlaced with the gating device. Images were obtained in supine position. Resting perfusion study was performed on 12/19/2023. Patient was administered 45 mCi of sestamibi intravenously at rest. Images were then obtained in supine position. Images obtained without without CT attenuation. Total DLP 180 mGy-cm. Images were processed with the software and compared side to side in short axis, horizontal long axis and vertical long axis views. Findings: The stress perfusion study showed nonattenuated images show absent uptake in the basal and mid inferior wall as well as moderately to severely reduced uptake in the inferoapical as well as mildly reduced uptake in the anterior and anteroseptal wall of the LV myocardium. There is also absent uptake in the basal inferolateral wall of the LV myocardium. Attenuated corrected images show moderately to severely reduced uptake in the distal anterior and apical wall as well as inferoapical wall as well as absent uptake in the basal and mid inferior wall as well as the basal anterolateral wall of the LV myocardium.. The gated study shows reduced LV systolic function with calculated LVEF of 45%. LV cavity is moderately dilated in size. The gated study shows absent wall thickening and contraction of the basal inferolateral segments. Resting study shows both attenuated as well as nontender corrected images show improved uptake in the anterior and anteroseptal wall suggestive of ischemia as well as improved uptake in the mid inferior and inferoapical wall as well as the apex suggestive of ischemia. The fixed defect in the basal inferolateral wall suggestive with absent uptake. Gating at rest reveals inferolateral wall motion abnormality with ejection fraction at 35%. The findings are consistent with large area of reversible defect of the mid to distal anterior apical and anteroseptal wall of mild intensity suggestive of ischemia in LAD territory. There is also improved uptake in the mid and apical portion of the inferior wall suggestive of ischemia in the inferior wall of severe intensity possible infarct of the basal inferolateral and possible basal inferior wall.. NM/NM alvarez perf SPECT rest & str Impression: 1. Myocardial perfusion imaging study shows severe ischemia in the RCA territory, moderate size defect, large-size mild intensity ischemia of the anterior and anteroseptal wall and LAD territory with possible infarct of the basal inferior and inferolateral wall. 2. Gated LVEF is 45% with stress 3. Transient ischemic dilatation not present but LV cavity is dilated Nondiagnostic changes on EKG. Electronically signed by: Joe Oropeza MD 12/19/2023 01:45 PM EDT
--- NOTE | 2023-12-11 07:50 | CA_ITS ---
Acquisition Time: 2023-12-11 07:49:47 Total Exercise Time: 00:02:00 Test Indications: CAD CARDIOMYOPATHY Medications: SEE H Protocol: LEXISCAN Max HR: 105 BPM 66% of Pred: 158 BPM Max BP: 118/060 mmHG Max Work Load: 1.0 METS Pharmacological stress test with Lexiscan injection, while sitting and moving left arm and legs, without anginal symptoms, with isolated PVCs, with normotensive response to injection, with nondiagnostic EKG for ischemia. In recovery he was treated with Aminophylline 75mg IVP to reverse Lexiscan. Nuclear images pending. Test reviewed with Dr Oropeza Referred By: Graham Zepeda Overread By: BRANDO TAPIA
== END ==
LOC: HO.CARD 07:47
PROVIDERS: PCP Internal Medicine; Visit Provider Surgery
DX: I25.10 Atherosclerotic heart disease of native coronary artery without angina pectoris (principal)
CPT/HCPCS: 78452; 93017; A9500; J0280; J2785

== ENCOUNTER → 2023-12-11 07:50 | Outpatient (BNV) | payer MEDICARE, MEDICAID, SELFPAY | PROVIDERS: PCP Internal Medicine; Visit Provider Nurse Practitioner Family | DX: I49.3 Ventricular premature depolarization (principal) | CPT/HCPCS: 78452; 93016; 93018 ==

== ENCOUNTER 2023-12-28 09:15 | Day surgery (SDC) | payer MEDICARE, MEDICAID, SELFPAY ==
[2023-12-26 08:43] VITALS: BMI 52.0
--- NOTE | 2023-12-27 09:53 | P.CONAN_ITS ---
Documented by User: Cristal Ca NP 12/27/23 10:04 HPI - Anesthesia Eval Consult details Narrative: 63yo M for Upper Endoscopy Follows [facility] cardiology for CAD s/p stent 2021. Abnormal stress, but no change from cath. Case reviewed with Dr Ly. EMERY for eval DOS for EGD. Needs cardiac optimization prior to sleeve, etc. Anesthesia Pre-Procedure Meds Is the patient on any of the following meds?: GLP1/DPP4 PMFSH Active Problems Active Problems: All Active Problems Morbid obesity (Acute) Coronary artery disease (Acute) Lymphedema (Acute) Varicose veins of right lower extremity with inflammation (Acute) Morbid obesity with BMI of 45.0-49.9, adult (Acute) Dyslipidemia (Acute) Mild nonproliferative diabetic retinopathy associated with type 2 diabetes mellitus (Acute) Diabetic polyneuropathy associated with type 2 diabetes mellitus (Acute) senior care (current) use of insulin (Acute) Essential hypertension (Acute) Diabetes type 2, uncontrolled (Acute) Past Medical History Medical History Morbid obesity Morbid obesity with BMI of 45.0-49.9, adult Dyslipidemia Mild nonproliferative diabetic retinopathy associated with type 2 diabetes mellitus Diabetic 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 Brother Prostate cancer Surgical History Surgical History H/O heart artery stent (~02/2022) Hx of tonsillectomy Hx of knee surgery History of laparoscopic appendectomy Social History Social History Are you a primary career services manager to a significant other at home: No Do you presently have visiting nurse or other home services: No Alcohol intake: never Patient Tobacco Use Status: Former Tobacco user Tobacco use type: Cigarette Meds Allergies Allergy/AdvReac Type Severity Reaction Status Date / Time morphine Allergy Intermediate Hives Verified 12/28/23 09:36 empagliflozin [Jardiance] Allergy Unknown Unknown Verified 12/28/23 09:36 Home Medications ?Medication ?Instructions ?Recorded ?Confirmed ?Last Taken ?Type cholecalciferol (vitamin D3) 50 50 mcg PO DAILY 09/09/20 12/28/23 Unknown History mcg (2,000 unit) tablet atorvastatin 40 mg tablet 40 mg PO DAILY 07/28/22 12/28/23 Unknown History clotrimazole 1 % topical cream appl topical BID 07/28/22 11/10/23 Unknown History dulaglutide 3 mg/0.5 mL mg subcut 10/02/23 11/10/23 12/21/23 History subcutaneous pen injector (Trulicity) insulin aspart (niacinamide) 0 - 25 unit subcut TID 10/02/23 12/28/23 Unknown History (U-100) 100 unit/mL subcutaneous solution (Fiasp U-100 Insulin) sacubitril 97 mg-valsartan 103 mg 1 tab PO BID 10/02/23 12/28/23 Unknown History tablet (Entresto) furosemide 20 mg tablet 20 mg PO DAILY 10/27/23 12/28/23 Unknown History pregabalin 200 mg capsule 200 mg PO BID 10/27/23 12/28/23 Unknown History spironolactone 25 mg tablet 25 mg PO DAILY 10/27/23 12/28/23 Unknown History Exam Height,Weight and Vital Signs: Height 5 ft 9.5 in Weight 161.932 kg Pertinent Lab Results Pertinent Lab Results: Laboratory Tests 11/13/23 10:16 WBC 11.1 H Hgb 12.4 L Hct 38.5 L Plt Count 322 Sodium 141 Potassium 4.5 Chloride 108 Carbon Dioxide 25 BUN 26 H Creatinine 0.80 Narrative Narrative: EKG 11/2023 Vent. Rate : 080 BPM Atrial Rate : 080 BPM P-R Int : 202 ms QRS Dur : 110 ms QT Int : 386 ms P-R-T Axes : 066 -47 -10 degrees QTc Int : 445 ms Sinus rhythm with occasional Premature ventricular complexes Left anterior fascicular block Abnormal ECG No previous ECGs available NM alvarez perf SPECT rest & str 12/2023 Impression: 1. Myocardial perfusion imaging study shows severe ischemia in the RCA territory, moderate size defect, large-size mild intensity ischemia of the anterior and anteroseptal wall and LAD territory with possible infarct of the basal inferior and inferolateral wall. 2. Gated LVEF is 45% with stress 3. Transient ischemic dilatation not present but LV cavity is dilated Nondiagnostic changes on EKG. Assessment and Plan Assessment Anesthesia Assessment: Chart Reviewed Documented by User: Kayla Delarosa MD 12/28/23 12:40 HPI - Anesthesia Eval Anesthesia Pre-Procedure Meds Is the patient on any of the following meds?: GLP1/DPP4 (Last dose of dulaglutide 12/21/23) If yes to any meds - educate patient: Pt education - increased risk of aspi ration and/or euvolemic DKA PMFSH Active Problems Active Problems: All Active Problems Morbid obesity (Acute) Coronary artery disease (Acute). Denies chest pain. Recent stress echo from 2 weeks ago abnormal. Patient will need evaluation by cardiology before major surgery Lymphedema (Acute) Varicose veins of right lower extremity with inflammation (Acute) Morbid obesity with BMI of 50.9 Dyslipidemia (Acute) Mild nonproliferative diabetic retinopathy associated with type 2 diabetes mellitus (Acute) Diabetic polyneuropathy associated with type 2 diabetes mellitus (Acute) senior care (current) use of insulin (Acute) Essential hypertension (Acute) Diabetes type 2, uncontrolled (Acute) Past Medical History Medical History Morbid obesity Morbid obesity with BMI of 45.0-49.9, adult Dyslipidemia Mild nonproliferative diabetic retinopathy associated with type 2 diabetes mellitus Diabetic 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 Brother Prostate cancer Family history of problems with anesthesia: No Surgical History Surgical History H/O heart artery stent (~02/2022) Hx of tonsillectomy Hx of knee surgery History of laparoscopic appendectomy History of Problems with Anesthesia: No Social History Social History Are you a primary career services manager to a significant other at home: No Do you presently have visiting nurse or other home services: No Alcohol intake: never Patient Tobacco Use Status: Former Tobacco user Tobacco use type: Cigarette Meds Allergies Allergy/AdvReac Type Severity Reaction Status Date / Time morphine Allergy Intermediate Hives Verified 12/28/23 09:36 empagliflozin [Jardiance] Allergy Unknown Unknown Verified 12/28/23 09:36 Home Medications ?Medication ?Instructions ?Recorded ?Confirmed ?Last Taken ?Type cholecalciferol (vitamin D3) 50 50 mcg PO DAILY 09/09/20 12/28/23 Unknown History mcg (2,000 unit) tablet atorvastatin 40 mg tablet 40 mg PO DAILY 07/28/22 12/28/23 Unknown History clotrimazole 1 % topical cream appl topical BID 07/28/22 11/10/23 Unknown History dulaglutide 3 mg/0.5 mL mg subcut 10/02/23 11/10/23 12/21/23 History subcutaneous pen injector (Trulicity) insulin aspart (niacinamide) 0 - 25 unit subcut TID 10/02/23 12/28/23 Unknown History (U-100) 100 unit/mL subcutaneous solution (Fiasp U-100 Insulin) sacubitril 97 mg-valsartan 103 mg 1 tab PO BID 10/02/23 12/28/23 Unknown History tablet (Entresto) furosemide 20 mg tablet 20 mg PO DAILY 10/27/23 12/28/23 Unknown History pregabalin 200 mg capsule 200 mg PO BID 10/27/23 12/28/23 Unknown History spironolactone 25 mg tablet 25 mg PO DAILY 10/27/23 12/28/23 Unknown History Exam Height,Weight and Vital Signs: Height 5 ft 9.5 in Weight 161.932 kg Vital Signs Temp Pulse Resp BP Pulse Ox O2 Del Method 12/28/23 10:02 98.0 F 96 18 109/67 97 Room Air Pertinent Lab Results Pertinent Lab Results: Laboratory Tests 11/13/23 10:16 WBC 11.1 H Hgb 12.4 L Hct 38.5 L Plt Count 322 Sodium 141 Potassium 4.5 Chloride 108 Carbon Dioxide 25 BUN 26 H Creatinine 0.80 Lab Results 12/28/23 Range/Units 09:48 POC Glucose 87 (60-115) mg/dL Airway Mallampati Class: III TM Dist: >3cm Neck ROM: Full Loose/Missing/Broken Teeth: Yes (Poor. Dentures not in. Broken teeth) Heart: RRR Lungs: CTAB Assessment and Plan Assessment Anesthesia Assessment: Anesthesia Plan Discussed and Chart Reviewed Final Anesthetic Review Family History of Problems with Anesthesia: No History of Problems with Anesthesia: No NPO: Yes ASA Class: III Final Preanesthetic Review: No Changes in Pt Med Stat, Meds/Allgs Chart Reviewed, Consent Obtained/Reviewed and Anes Risks/Benef Reviewed Patient Risk: Intermediate Procedure Risk: Low Assessment/Block/Sedation in SS: Assess/Block/Sedation-SS Anesthetic Plan Anesthetic Plan: TIVA Disposition: Standard PACU
[2023-12-28] MEDS: Lactated Ringers 1,000 ML 80 ML IVCONT (09:46)
[2023-12-28 09:57] LABS: Glucose, Whole Blood 87 mg/dL (60-115)
[2023-12-28 09:58] VITALS: BMI 50.9
[2023-12-28 10:02] VITALS: BP 109/67; PULSE 96; RESP 18; TEMP 36.7; O2SAT 97
--- NOTE | 2023-12-28 11:26 | P.HPSUR_ITS ---
Pre-Procedural Eval Section A - 24 Hr Update-Section A only Date of Service: 12/28/23 The patient is an INPATIENT: No The patient has been examined within 24 hours of the surgical procedure. The History & Physical has been completed within 30 days and I have reviewed it.: Yes Section B - Complete if H&P > 30 days Chief Complaint: Morbid (severe) obesity due to excess calories Details of Present Illness: Anemia Relevant Family History (Specify if Yes): No Relevant Social History: None Present Medications: None Medical History: No relevant PMH History of Previous Operations: No relevant previous surgery Allergies: Allergies Allergy/AdvReac Type Severity Reaction Status Date / Time morphine Allergy Intermediate Hives Verified 12/28/23 09:36 empagliflozin [Jardiance] Allergy Unknown Unknown Verified 12/28/23 09:36 Review of Systems Sugical H&P ROS: Negative: Constitution, Cardiovascular, Respiratory, Neurological, Psychiatric, Hem-Onc, Allergic/Immunologic, Gastrointestinal, G enitourinary, Musculoskeletal, Integumentary, Endocrine and Eyes/Ears/Nose/Throat Exam Surgical H&P Exam: Normal: HEENT, Normal: Heart, Normal: Lungs, Normal: Extremities, Normal: Abdomen, Normal: Skin and Normal: Neurological Plan Diagnosis/Plan: Unchanged (EGD to assess etiology of anemia. Risks of bleeding and perforation were discussed with the patient and he is in agreement with the plan.) I have reviewed the history and physical and performed a pertinent physical examination on my patient. No changes have occurred unless specified. Time Spent With Patient Time: Total time managing care of this patient today ____ minutes.
--- NOTE | 2023-12-28 11:27 | PM.OP ---
Brief Operative Note Date of Service: 12/28/23 Pre-op diagnosis: Anemia Post-op diagnosis: same (& small diaphragmatic hernia) Procedure: PROCEDURE DATE: 12/28/2023 PREOPERATIVE DIAGNOSIS: Anemia POSTOPERATIVE DIAGNOSIS: ?Same as above. 1) small hiatal hernia PROCEDURE: [id number] with biopsies Surgeon: ?Chau Zepeda M.D.. Ph.D. Transistor Tester: None ? Anesthesia: IV sedation Estimated blood loss: ?Minimal FINDINGS AND PROCEDURE: ? OPERATIVE INDICATIONS: ?The patient is a 63 year old male known to me who is interested in bariatric surgery. The patient has anemia. Based on this information I recommended an upper endoscopy to evaluate the patient's symptoms. Risks and complications of the surgery were discussed with the patient in advance particularly the possibility of perforation or bleeding that may require surgical intervention. The patient understood the risks and was in agreement with the plan. ? PROCEDURE: After informed consent was obtained by the patient, the patient was ?transferred to the Operating Room and was placed in the supine position.? After successful induction of IV sedation, a mouth block was inserted and the patient was placed in the left lateral decubitus position. An upper endoscopy was performed next, the oropharynx and esophagus appeared within the normal limits. There was a small 3cm hiatal hernia. The z-line was smooth. Two biopsies were obtained from the distal esophagus 2-3 cm proximal to the GE junction and two additional biopsies from the GE junction. The stomach was entered and it appeared to be of normal size. There was no gastritis. There was no stricture or ulcer. A biopsy was obtained from the gastric fundus and the antrum. No significant bleeding was noted from any of the biopsy sites. Retroflexion of the scope revealed a small diaphragmatic hernia as previously mentioned. The scope was then advanced into the duodenum which appeared to be normal as well. At that point the duodenum ?and the stomach were decompressed and the scope was withdrawn from the patient's mouth. The patient extubated and was transferred in stable condition to the Recovery Room for further care. I was present and performed all steps of the procedure. There were no residents to assist with this case. Chau Zepeda M.D., Ph.D. Surgeon: Graham Zepeda MD Anesthesia: MAC Was an Transistor Tester used for this Procedure?: No Estimated blood loss (mL): 0 IV fluids (mL): 400 Urine output (mL): 0 (No [place] to record output) Pathology: other (1) antrum x1, 2) fundus x1, 3) GE junction x2, 4) distal esophagus x2) Condition: stable Disposition: PACU
[2023-12-28 12:18] VITALS: BP 103/55; PULSE 98; RESP 23; TEMP 36.2; O2SAT 94
[2023-12-28 12:33] VITALS: BP 113/55; PULSE 92; RESP 20; TEMP 36.2; O2SAT 97
[2023-12-28 12:47] VITALS: BP 111/53; PULSE 92; RESP 20; TEMP 36.2; O2SAT 97
== END 2023-12-28 13:43 | disposition home or self-care (01) ==
PROVIDERS: PCP Internal Medicine; Visit Provider Surgery
PROC: 0DJ08ZZ Inspection of Upper Intestinal Tract, Via Natural or Artificial Opening Endoscopic (ICD-10-PCS; CPT 43235; principal; 2023-12-28 11:00)
DX: K21.9 Gastro-esophageal reflux disease without esophagitis (principal); E66.01 Morbid (severe) obesity due to excess calories; Z68.43 Body mass index [BMI] 50.0-59.9, adult; I10 Essential (primary) hypertension; I25.10 Atherosclerotic heart disease of native coronary artery without angina pectoris; Z95.5 Presence of coronary angioplasty implant and graft; E78.5 Hyperlipidemia, unspecified; E11.3299 Type 2 diabetes mellitus with mild nonproliferative diabetic retinopathy without macular edema, unspecified eye; E11.42 Type 2 diabetes mellitus with diabetic polyneuropathy; Z79.4 Long term (current) use of insulin; Z79.899 Other long term (current) drug therapy; Z88.5 Allergy status to narcotic agent; Z88.8 Allergy status to other drugs, medicaments and biological substances; Z98.890 Other specified postprocedural states; Z87.891 Personal history of nicotine dependence
CPT/HCPCS: 43239; 82947; 88305; 88313; 88342; J1596; J2003; J2704

== ENCOUNTER → 2023-12-28 09:15 | Outpatient (BNV) | payer MEDICARE, MEDICAID, SELFPAY | PROVIDERS: PCP Internal Medicine; Visit Provider Surgery | DX: K44.9 Diaphragmatic hernia without obstruction or gangrene (principal) | CPT/HCPCS: 43239 ==

== ENCOUNTER → 2024-01-02 09:44 | Outpatient (BNVA) | payer MEDICARE, SELFPAY | PROVIDERS: PCP Internal Medicine; Visit Provider Physician Assistant Surgical ==

== ENCOUNTER 2024-01-09 09:34 | Outpatient (REF) | payer MEDICARE, SELFPAY ==
--- NOTE | ~2024-01-09 | FL_ITS ---
EXAMINATION: XR FLUOROSCOPY UPPER GI WITH AIR CLINICAL INFORMATION: Preoperative evaluation prior to bariatric surgery COMPARISON: None TECHNIQUE: Fluoroscopic air contrast upper GI examination was performed utilizing standard techniques with thin and thick barium and effervescent granules. Numerous spot images were obtained. FINDINGS: Dual and single contrast images of the esophagus demonstrate normal caliber, contour, and mucosal pattern. No evidence of stricture, mass, or ulcerations identified. There is to and fro motion of the barium column with nonpropulsive tertiary contractions noted throughout the esophagus. A small type I hiatal hernia is present. No significant gastroesophageal reflux was seen during the course of the examination and on reflux views. Dual contrast and single contrast images of the stomach demonstrated a normal contour. Evaluation of the gastric mucosa is limited due to poor coating of the stomach patient's body habitus. Contrast freely passed into the gastric antrum and duodenal bulb without delay. Single and air-contrast images of the duodenal bulb demonstrate no abnormality. The duodenal sweep has a normal appearance, course, and mucosal fold appearance. The imaged proximal jejunum has a normal fold pattern and caliber. FLUOROSCOPY TIME: 4 minutes 34 seconds Number of Spot Images: 5 Number of Cine: 16 DOSE AREA PRODUCT: [id number] uGy-m2 (microgray-meter squared) FL/FL upper GI w air IMPRESSION: 1. Esophageal dysmotility. 2. Small type I hiatal hernia. 3. Limited evaluation of the gastric mucosa due to poor coating of the barium and the patient's body habitus. This procedure was performed by Pepe Carrillo PA-C, and supervised by Dr. Lai Electronically signed by: Cliff Lai MD 01/09/2024 01:59 PM [facility]
== END 2024-01-09 09:35 | disposition home or self-care (01) ==
LOC: HO.XRAY 09:34
PROVIDERS: PCP Internal Medicine; Visit Provider Surgery
DX: E11.65 Type 2 diabetes mellitus with hyperglycemia (principal); I10 Essential (primary) hypertension; Z79.4 Long term (current) use of insulin; E78.5 Hyperlipidemia, unspecified; E66.01 Morbid (severe) obesity due to excess calories; Z68.42 Body mass index [BMI] 45.0-49.9, adult; I25.10 Atherosclerotic heart disease of native coronary artery without angina pectoris
CPT/HCPCS: 71046; 74246

== ENCOUNTER → 2024-01-09 09:36 | Outpatient (BNV) | payer MEDICARE, SELFPAY | PROVIDERS: PCP Internal Medicine; Visit Provider Physician Assistant Surgical | DX: E66.01 Morbid (severe) obesity due to excess calories (principal); Z01.818 Encounter for other preprocedural examination | CPT/HCPCS: 74246 ==

== ENCOUNTER → 2024-01-17 08:45 | Outpatient (BNVA) | payer MEDICARE, SELFPAY | PROVIDERS: PCP Internal Medicine; Visit Provider Physician Assistant Surgical ==

== ENCOUNTER → 2024-02-23 08:34 | Outpatient (BNVA) | payer MEDICARE, SELFPAY | PROVIDERS: PCP Internal Medicine; Visit Provider Physician Assistant Surgical ==

== ENCOUNTER 2024-03-07 08:23 | Outpatient (AMB) | payer MEDICARE, MEDICAID, SELFPAY ==
--- NOTE | 2024-03-07 08:26 | MHC.OFFVIS ---
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 test Photo Print Specialist Required: No Allergies morphine Allergy (Intermediate, Verified 03/07/24 08:30) Hives empagliflozin [Jardiance] Allergy (Unknown, Verified 03/07/24 08:30) Unknown Medication List - Last Reconciled 03/07/24 by NICCI Ndiaye atorvastatin 40 mg PO DAILY barium sulfate 2%(w/v) (Readi-Cat 2) 900 mL orally; 2 hours before cat scan blood sugar diagnostic (FreeStyle Lite Strips) 4 times a day carvedilol 25 mg PO DAILY cholecalciferol (vitamin D3) 50 mcg PO DAILY clotrimazole 1% appl topical BID dulaglutide (Trulicity) mg subcut furosemide 20 mg PO DAILY insulin aspart (niacinamide) 100 unit/mL (Fiasp U-100 Insulin) 0 - 25 units subcut TID insulin degludec (Tresiba FlexTouch U-200 insulin) 80 units subcut DAILY metformin 1,000 mg PO BID 90 days pen needle, diabetic (BD Yudy 2nd Gen Pen Needle) 5 times a day pregabalin 200 mg PO BID sacubitril-valsartan 97-103 mg (Entresto) 1 tab PO BID spironolactone 25 mg PO DAILY HPI HPI 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 He had been following with [facility] but has not been seen in 9 months. Today he presents for cardiology consultation. He tells me that he has 2 stents in his heart arteries. He says he has been feeling well recently with no concerning symptoms. He does not get chest discomfort at rest or with activity. He does have shortness of breath with physical activity which he relates to his obesity. He also has bilateral knee arthritis and ambulates slowly with a cane. No heart palpitations, lightheadedness, presyncope, syncope, recent falls. He has chronic leg edema and redness. No open wounds. He says he smoked for 30 years and quit 5 years ago. He used to be a heavy drinker but stopped that as well. 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 He is unsure of his Lasix dose but he does not want to increase it any further due to frequent urination already. He does not want to go back to [facility] cardiology. He is requesting all his cardiac care be managed by our office. 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 Brother Prostate cancer Social History Are you a primary day care center director to a significant other at home: No Do you presently have visiting nurse or other home services: No Alcohol intake: never Patient Tobacco Use Status: Former Tobacco user Tobacco use type: Cigarette Review of Systems Const All systems reviewed & are unremarkable except as noted in HPI and below Reports weakness, Reports weight gain and Reports weight loss ENT Denies dizziness Card Denies chest pain, Denies chest pain at rest, Denies chest pain with activity, Denies rapid heart rate, Denies pedal edema, Denies edema, Reports leg edema, Denies lightheadedness, Denies palpitations, Denies dyspnea, Denies dyspnea on exertion and Denies orthopnea Resp Denies cough, Denies dyspnea and Denies dyspnea on exertion GI Denies hematochezia and Denies change in stool character Musc Details: bilateral knee pain from arthritis Reports abnormal gait (uses cane), Reports limited range of motion, Denies muscle cramps, Reports muscle weakness, Denies numbness, Denies radiating pain into limb, Denies stiffness and Denies tingling Neuro Reports abnormal gait (uses cane), Denies dizziness, Denies numbness, Denies tingling and Reports weakness Endo Denies palpitations Physical Exam Vital Signs: Last Vital Signs Pulse 68 03/07/24 08:27 BP 114/72 03/07/24 08:27 BMI result Body Mass Index 52.8 Const General: cooperative, comfortable and no acute distress Orientation/consciousness: patient oriented x3 Neck Neck: Yes normal visual inspection Resp Effort & Inspection: normal respiratory effort Auscultation: clear to auscultation bilaterally, no rales, no rhonchi and no wheezes Cardio Rate: regular rate Rhythm: regular rhythm Heart sounds: S1 normal heart sound present, S2 normal heart sound present, no murmurs and no rubs Neuro General: patient oriented x3 Extrem Other: Tight nonpitting edema in each lower leg from knee down to feet - no open skin areas, no weaping, some pinkness to skin which he says is always present. Psych Appearance: grossly normal Mental Status: mental status grossly normal Speech and movement: Normal speech and movement present Office Procedures EKG Details: Today, read by me normal sinus rhythm, left axis, LAFB, rate 68, QTc 404ms [id number], Complete Assessment & Plan Assessment & Plan (1) Abnormal nuclear stress test: Code(s): R94.39 - Abnormal result of other cardiovascular function study Category: Medical Plan: Patient with known history of coronary artery disease with cardiac catheterization done 02/2022, 2 OMER placed to the RCA. According to [facility] cardiology notes he has known ischemic cardiomyopathy with last EF 35-45% and regional wall motion abnormality in the RCA territory 09/2022. He was last seen by [facility] cardiology 05/2023 and there note was reviewed. Patient states he has not been back to the office and does not plan to. He is requesting his cardiac care be followed by us. He has recently undergoing evaluation for bariatric surgery. His EKG done 11/13/2023 shows sinus rhythm, PVC, left anterior fascicular block, rate 80. He was sent for a pharmacological nuclear stress test which was done 12/11/2023 which shows severe ischemia in the RCA territory, moderate size defect, large-size mild intensity ischemia of the anterior and anteroseptal wall and LAD territory with possible infarct of the basal inferior and inferolateral wall. Gated LVEF is 45% with stress. Transient ischemic dilatation not present but LV cavity is dilated. Test results reviewed with him in detail. He denies any chest discomfort. He does have shortness of breath with exertional activities. He has cardiac risk factors of hypertension, hyperlipidemia, diabetes, obesity, prior smoking. He has been on appropriate cardiac medications however to I do not see aspirin on his list. Will send that to his pharmacy. Continue moderate dose atorvastatin. Continue carvedilol, Entresto, Aldactone. Will check echocardiogram to reassess EF, wall motion. Will order cardiac catheterization, question PCI. Procedure, risks reviewed with him and he states understanding. He is agreeable to proceed. Will check BMP, CBC, PT/INRs prior to the procedure. He has no known contrast dye allergy. Tells me he does not want to do any testing in the month of March since his brother is away [place]. He is agreeable to proceed with the catheterization in April. Informed him that the abnormal stress test shows he has increased risk for [place] and if he was to have any concerning symptoms he should seek emergency medical care. Instructed on light physical activity. Cardiology follow-up 2 weeks post procedure. (2) Diabetes type 2, uncontrolled: Code(s): E11.65 - Type 2 diabetes mellitus with hyperglycemia Category: Medical Plan: Hemoglobin A1c goal less than 7. Followed by his PCP. (3) Essential hypertension: Code(s): I10 - Essential (primary) hypertension Category: Medical Plan: Blood pressure goal less than 130/85. Currently well controlled at 114/72. Continue Entresto, Aldactone, carvedilol, Lasix. (4) Dyslipidemia: Code(s): E78.5 - Hyperlipidemia, unspecified Category: Medical Plan: [place] LDL goal less than 70. Labs done 11/13/2023 showed LDL 51. Continue atorvastatin. (5) Coronary artery disease: Code(s): I25.10 - Atherosclerotic heart disease of [place] coronary artery without angina pectoris Category: Medical Plan: As above. Will obtain copy of the blast cardiac catheterization for our records. (6) Morbid obesity: Code(s): E66.01 - Morbid (severe) obesity due to excess calories Category: Medical Plan: He is currently following with the bariatric program. He is not medically clear for any surgery. (7) Stented coronary artery: Code(s): Z95.5 - Presence of coronary angioplasty implant and graft Category: Surgical Plan: Notes indicate that he has to OMER in the RCA Plan Time spent on chart review, documentation, interview and assessment Orders: Orders CA echo transthoracic complete Today I25.10 - Atherosclerotic heart disease of [place] coronary artery without angina pectoris, R94.39 - Abnormal result of other cardiovascular function study Prothrombin Time INR Today R94.39 - Abnormal result of other cardiovascular function study Cardiac Cath LT w PCI 4 Weeks I25.10 - Atherosclerotic heart disease of [place] coronary artery without angina pectoris, R94.39 - Abnormal result of other cardiovascular function study Basic Metabolic Panel Today I25.10 - Atherosclerotic heart disease of [place] coronary artery without angina pectoris, R94.39 - Abnormal result of other cardiovascular function study Complete Blood Count Auto Diff Today R94.39 - Abnormal result of other cardiovascular function study Coding Level of Care Code New Pt Level 4 (66441) Complex EM visit Add On G2211 Diagnoses Abnormal nuclear stress test R94.39 Diabetes type 2, uncontrolled E11.65 Essential hypertension I10 Dyslipidemia E78.5 Coronary artery disease I25.10 Morbid obesity E66.01 Stented coronary artery Z95.5 CPT Codes EKG - CPT: 06935-[id number], Complete ([id number]) Time Spent (min) 40
[2024-03-07 08:27] VITALS: BP 114/72; PULSE 68; BMI 52.8
== END 2024-03-07 09:08 | disposition home or self-care (01) ==
PROVIDERS: PCP Internal Medicine; Visit Provider Nurse Practitioner Family
DX: E11.65 Type 2 diabetes mellitus with hyperglycemia (principal); I11.9 Hypertensive heart disease without heart failure; I25.10 Atherosclerotic heart disease of native coronary artery without angina pectoris; Z95.5 Presence of coronary angioplasty implant and graft; R94.39 Abnormal result of other cardiovascular function study; E78.5 Hyperlipidemia, unspecified; E66.01 Morbid (severe) obesity due to excess calories; Z68.43 Body mass index [BMI] 50.0-59.9, adult; R94.31 Abnormal electrocardiogram [ECG] [EKG]
CPT/HCPCS: 93010; 99214; G2211

== ENCOUNTER → 2024-03-07 08:23 | Outpatient (BNVA) | payer MEDICARE, SELFPAY | PROVIDERS: PCP Internal Medicine; Visit Provider Nurse Practitioner Family | DX: R94.39 Abnormal result of other cardiovascular function study (principal); I25.10 Atherosclerotic heart disease of native coronary artery without angina pectoris; I10 Essential (primary) hypertension; E78.5 Hyperlipidemia, unspecified; E11.65 Type 2 diabetes mellitus with hyperglycemia; E66.01 Morbid (severe) obesity due to excess calories; Z95.5 Presence of coronary angioplasty implant and graft; Z68.43 Body mass index [BMI] 50.0-59.9, adult | CPT/HCPCS: 93005; 99212 ==

== ENCOUNTER → 2024-03-21 07:42 | Outpatient (REF) | payer MEDICARE, MEDICAID, SELFPAY ==
--- NOTE | 2024-03-21 07:46 | CA_ITS ---
Transthoracic Echocardiogram Patient (Last, First, Middle): Yash Campbell, Gender: Male Date of : 1960 Age: 64 Procedure Date: 03/21/2024 Procedure Type: Transthoracic Echocardiogram Location: OP Height: 175.26 cm Weight: 164.2 kg BSA: 2.66 m2 Heart Rate: 78 bpm BP: 114 / 72 mmHg Sales Performance Manager: SB Referring MD: Madelyn Maldonado CASE WORKERRossy Symptoms: R94.39 - Abnormal result of other cardiovascular function study Study Quality: Fair ECG Rhythm: Sinus Conclusions: - 1. Technically difficult study despite use of contrast agent 2. Mildly dilated left ventricle with moderate to severe LV dysfunction with LVEF of 30-35% 3. Cardiac valvular Dopplers within normal limits Findings Procedure Information Contrast agent, definity, is being given per protocol without apparent complications. The quality of the study was technically difficult. The study quality is limited by patients body habitus. Left Ventricle Mildly increased left ventricular cavity size. The left ventricular systolic function is moderate to severely decreased. The visually estimated ejection fraction is between 30-35%. Spectral Doppler is indicative of a normal filling pattern. Right Ventricle The right ventricle was not well visualized. Atria The left atrium was not well visualized. Interatrial shunt cannot be excluded. The right atrium was not well visualized. Aortic Valve The aortic valve was not well visualized. There is no aortic valve stenosis. There is no aortic valve regurgitation. Mitral Valve Likely normal mitral valve structure and function. There is trace mitral valve regurgitation. There is no mitral valve stenosis. Pulmonic Valve The pulmonic valve was not well visualized. Tricuspid Valve The tricuspid valve was not well visualized. Tricuspid regurgitation envelope is inadequate for calculation of right ventricular systolic pressure. Great Vessels The aorta was not well visualized. The pulmonary artery was not well visualized. Venous The inferior vena cava is normal in size. Pericardium/Pleural The pericardium was not well visualized. Prior Study Comparison No prior study available for comparison. Measurements 2D Linear Measurements IVSd: 1.05 0.6-0.9/0.6-1.0 cm LVIDd: 5.70 3.9-5.3/4.2-5.9 cm LVIDd Index: 2.09 2.4-3.2/2.2-3.1 cm/m2 LVOT Diam: 2.40 3.0+(-)1.3 cm 2D Systolic Function EF 4C: 31.80 >55% EF 2C: 36.90 >55% EF BiP: 32.70 >55% Mitral Valve MV Pk E: 0.93 MV PK A: 0.85 MV Decel Time: 187.00 E/A: 1.10 E'Lateral: 10.30 E'Medial: 7.29 E/E' Med: 12.70 E/E' Lat: 9.00 PHT: 55.00 MVA PHT: 4.00 Decel Otero: 4.94 Aortic Valve AoV Pk Matt: 1.26 AoV Pk Grad: 6.00 BEN: 3.62 LVOT LVOT Pk Matt: 1.01 LVOT Mn Matt: 0.64 LVOT VTI: 0.21 LVOT Pk Grad: 4.00 LVOT Mn Grad: 2.00 LVOT Diam: 2.40 LVOT Area: 4.52 Diastolic Function MV Pk E: 0.93 MV Pk A: 0.85 E/A: 1.10 E'Medial: 7.29 E/E' Med: 12.70 E' Laterial: 10.30 E/E' Lat: 9.00 Right Ventricle TAPSE (mm): 33.90 TVS' Matt: 15.30 Tricuspid Valve RA Press: 15.00 Great Vessels Aorta Sinus of Valsalva: 3.00 2.0-3.5 cm Ao Asc: 3.30 2.1-3.4 cm Pulmonary Valve PV Pk Matt: 1.05 Peak PV Grad: 4.00 Updated in Other Vendor System with Status of Final oJe Oropeza MD electronically signed on 03/22/2024 2:01:43 PM with status of Final
== END ==
LOC: HO.CARD 07:42
PROVIDERS: PCP Internal Medicine; Visit Provider Nurse Practitioner Family
DX: I25.10 Atherosclerotic heart disease of native coronary artery without angina pectoris (principal); R94.39 Abnormal result of other cardiovascular function study
CPT/HCPCS: 93306; Q9957

== ENCOUNTER → 2024-03-21 07:46 | Outpatient (BNV) | payer MEDICARE, MEDICAID, SELFPAY | PROVIDERS: PCP Internal Medicine; Visit Provider Internal Medicine Cardiovascular Disease | DX: I50.20 Unspecified systolic (congestive) heart failure (principal) | CPT/HCPCS: 93306 ==

== ENCOUNTER → 2024-04-16 23:59 | Outpatient (BNV) | payer MEDICARE, MEDICAID, SELFPAY | PROVIDERS: PCP Internal Medicine; Visit Provider Internal Medicine Cardiovascular Disease | DX: I50.20 Unspecified systolic (congestive) heart failure (principal); Z95.5 Presence of coronary angioplasty implant and graft | CPT/HCPCS: 93458; 99152 ==

== ENCOUNTER 2024-05-24 08:23 | Outpatient (AMB) | payer MEDICARE, MEDICAID, SELFPAY ==
--- NOTE | 2024-05-24 08:27 | MHC.OFFVIS ---
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 Required: No Accompanied by: Self / Same As Patient Allergies morphine Allergy (Intermediate, Verified 03/07/24 08:30) Hives empagliflozin [Jardiance] Allergy (Unknown, Verified 03/07/24 08:30) Unknown Medication List - Last Reconciled 05/24/24 by EDGAR NdiayeC aspirin 81 mg PO DAILY atorvastatin 40 mg PO DAILY blood sugar diagnostic (FreeStyle Lite Strips) 4 times a day carvedilol 25 mg PO DAILY cholecalciferol (vitamin D3) 50 mcg PO DAILY clotrimazole 1% appl topical BID dulaglutide (Trulicity) mg subcut furosemide 20 mg PO DAILY insulin aspart (niacinamide) 100 unit/mL (Fiasp U-100 Insulin) 0 - 25 units subcut TID insulin degludec (Tresiba FlexTouch U-200 insulin) 80 units subcut DAILY metformin 1,000 mg PO BID 90 days pen needle, diabetic (BD Uydy 2nd Gen Pen Needle) 5 times a day pregabalin 200 mg PO BID sacubitril-valsartan 97-103 mg (Entresto) 1 tab PO BID spironolactone 25 mg PO DAILY HPI HPI Follow up- Cardiac Cath- [facility]: Details: Yash is a 64-year-old male past medical history of obesity, hypertension, hyperlipidemia, diabetes, prior smoking, coronary artery disease, 2 stents in the RCA, ischemic cardiomyopathy with prior EF 35-45% who previously followed with [facility] cardiology with last visit there 05/2023. He came here as a new patient in March 2024. An echocardiogram confirms EF 30-35%. He had had an abnormal stress test then underwent a cardiac catheterization, showing patent stents and now presents for follow-up. Today he reports that he has been feeling well with no concerning symptoms. His right radial catheterization site is feeling good. He does not get chest discomfort at rest or with activity. He does have shortness of breath with exertion physical activity which he relates to his obesity. He also has bilateral knee arthritis and ambulates slowly with a cane. No heart palpitations, lightheadedness, presyncope, syncope, recent falls. He has chronic leg edema and redness. No open wounds. He says he smoked for 30 years and quit 5 years ago. He used to be a heavy drinker but stopped that as well. 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 He does not want his diuretic dose increased due to frequent urination already. He does not want to go back to [facility] cardiology. He is requesting all his cardiac care be managed by our office. 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 Brother Prostate cancer Social History Are you a primary physician assistant primary care to a significant other at home: No Do you presently have visiting nurse or other home services: No Alcohol intake: never Patient Tobacco Use Status: Former Tobacco user Tobacco use type: Cigarette Review of Systems Const All systems reviewed & are unremarkable except as noted in HPI and below Denies chills, Denies fatigue, Denies fever(s), Denies weight gain and Denies weight loss ENT Denies dizziness Card Denies chest pain, Reports leg edema, Denies lightheadedness, Denies palpitations, Reports dyspnea on exertion (if he overexerts), Denies orthopnea and Denies other Resp Denies cough and Reports dyspnea on exertion (if he overexerts) GI Denies hematochezia and Denies change in stool character Musc Reports abnormal gait (uses cane), Denies muscle weakness, Denies numbness, Denies radiating pain into limb and Denies tingling Neuro Reports abnormal gait (uses cane), Denies dizziness, Denies numbness and Denies tingling Endo Denies fatigue and Denies palpitations Physical Exam Vital Signs: Last Vital Signs Pulse 64 05/24/24 08:28 BP 100/56 L 05/24/24 08:28 BMI result Body Mass Index 51.0 Const Other: morbidly obese General: cooperative, comfortable and no acute distress Orientation/consciousness: patient oriented x3 Neck Neck: Yes normal visual inspection Resp Effort & Inspection: normal respiratory effort Auscultation: clear to auscultation bilaterally, no rales, no rhonchi and no wheezes Cardio Rate: regular rate Rhythm: regular rhythm Heart sounds: S1 normal heart sound present, S2 normal heart sound present, no murmurs and no rubs Neuro General: patient oriented x3 Extrem Other: Tight nonpitting edema in each lower leg from knee down to feet - no open skin areas, no weaping, some pinkness to skin which he says is always present. Right radial cath site with easily palpable right radial artery Psych Appearance: grossly normal Mental Status: mental status grossly normal Speech and movement: Normal speech and movement present Assessment & Plan Assessment & Plan (1) Abnormal nuclear stress test: Code(s): R94.39 - Abnormal result of other cardiovascular function study Category: Medical Plan: Nuclear stress test ordered by PCP prior to consultation in our office. Pharmacological nuclear stress test which was done 12/11/2023 which shows severe ischemia in the RCA territory, moderate size defect, large-size mild intensity ischemia of the anterior and anteroseptal wall and LAD territory with possible infarct of the basal inferior and inferolateral wall. Gated LVEF is 45% with stress. Echocardiogram done 03/21/2024 showed EF 30-35% . He underwent cardiac catheterization on 04/16/2024 showing mid circumflex 70-80% stenosis, [id number] territory and RCA stents patent. He has no clear anginal symptoms. We will continue with medical management. Continue aspirin indefinitely. Continue atorvastatin with ideal LDL goal less than 70. Continue carvedilol for heart rate and blood pressure control. Signs and symptoms of angina reviewed. (2) Hx of cardiac cath: Comment: 02/07/2022, 70% mid left circumflex stenosis, 40% proximal LAD stenosis 90% RCA stenosis and 2 overlapping OMER placed 04/16/2024, left main normal, lad minimal luminal irregularities, less than 30% stenosis, mid circumflex 70-80% stenosis, small to moderate territory, mid RCA stents patent. Code(s): Z98.890 - Other specified postprocedural states Category: Surgical Plan: Right radial catheterization site well healed (3) Coronary artery disease: Comment: Overlapping stents in the RCA, moderate circumflex stenosis, [id number] territory. Code(s): I25.10 - Atherosclerotic heart disease of [place] coronary artery without angina pectoris Category: Medical (4) Cardiomyopathy: Code(s): I42.9 - Cardiomyopathy, unspecified Category: Medical Plan: Nonischemic cardiomyopathy. Previously followed by [facility] [place] [place] cardiology and now following with [facility]. NYHA class 1-2. Most recent EF 30-35%, prior EF quoted as 35-45%. Will continue guideline directed therapy and plan for limited echo in 3 months to re-evaluate EF. If remains less than 35% then ICD may be indicated. Continue carvedilol and Entresto for neurohormonal modulation. Continue Lasix and Aldactone. 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 Plan is to start Jardiance 10 mg daily. Cardiology follow-up 3 months, sooner if needed (5) Essential hypertension: Code(s): I10 - Essential (primary) hypertension Category: Medical Plan: Blood pressure goal less than 130/80. On low side today, asymptomatic. Continue Entresto, Aldactone, carvedilol, Lasix. (6) Diabetes type 2, uncontrolled: Code(s): E11.65 - Type 2 diabetes mellitus with hyperglycemia Category: Medical Plan: Hemoglobin A1c goal less than 7. Followed by his PCP. (7) Dyslipidemia: Code(s): E78.5 - Hyperlipidemia, unspecified Category: Medical Plan: [place] LDL goal less than 70. Labs done 11/13/2023 showed LDL 51. Continue atorvastatin. (8) Morbid obesity: Code(s): E66.01 - Morbid (severe) obesity due to excess calories Category: Medical Plan: He is currently following with the bariatric program. He had been considering bariatric surgery however now states that he wants to hold off on surgery at this time. Weight loss would be beneficial. If he wanted to proceed with surgery he would likely be intermediate cardiac risk. (9) Stented coronary artery: Code(s): Z95.5 - Presence of coronary angioplasty implant and graft Category: Surgical Plan: OMER in the RCA Plan Time spent on chart review, documentation, interview and assessment Coding Level of Care Code Est Pt Level 4 (66456) Complex EM visit Add On G2211 Diagnoses Abnormal nuclear stress test R94.39 Hx of cardiac cath Z98.890 Coronary artery disease I25.10 Cardiomyopathy I42.9 Essential hypertension I10 Diabetes type 2, uncontrolled E11.65 Dyslipidemia E78.5 Morbid obesity E66.01 Stented coronary artery Z95.5 Time Spent (min) 30
[2024-05-24 08:28] VITALS: BP 100/56; PULSE 64; BMI 51.0
== END 2024-05-24 09:03 | disposition home or self-care (01) ==
LOC: HO.HCS 08:24
PROVIDERS: PCP Internal Medicine; Visit Provider Nurse Practitioner Family
DX: R94.39 Abnormal result of other cardiovascular function study (principal); Z98.890 Other specified postprocedural states; I25.10 Atherosclerotic heart disease of native coronary artery without angina pectoris; I42.9 Cardiomyopathy, unspecified; I10 Essential (primary) hypertension; E11.65 Type 2 diabetes mellitus with hyperglycemia; E78.5 Hyperlipidemia, unspecified; E66.01 Morbid (severe) obesity due to excess calories; Z95.5 Presence of coronary angioplasty implant and graft
CPT/HCPCS: 99214; G2211

== ENCOUNTER → 2024-05-24 08:23 | Outpatient (BNVA) | payer MEDICARE, MEDICAID, SELFPAY | PROVIDERS: PCP Internal Medicine; Visit Provider Nurse Practitioner Family | DX: I25.10 Atherosclerotic heart disease of native coronary artery without angina pectoris (principal); I10 Essential (primary) hypertension; I42.9 Cardiomyopathy, unspecified; R94.39 Abnormal result of other cardiovascular function study; E11.65 Type 2 diabetes mellitus with hyperglycemia; E78.5 Hyperlipidemia, unspecified; E66.01 Morbid (severe) obesity due to excess calories; Z95.5 Presence of coronary angioplasty implant and graft; Z98.890 Other specified postprocedural states; Z68.43 Body mass index [BMI] 50.0-59.9, adult | CPT/HCPCS: 99212 ==